=== PATIENT | female | born 1955 | race Caucasian/White ===

== ENCOUNTER 2020-02-21 07:45 | Outpatient (CLI) | payer MEDICARE, OTHER, SELFPAY ==
[2020-02-21 08:05] LABS: Hematocrit 43.4 % (37.0-47.0); Hemoglobin 14.2 g/dL (12.0-15.0); Mean Corpuscular HGB Conc 32.7 g/dl (32-36); Mean Corpuscular Hemoglobin 30.5 pg (26-34); Mean Corpuscular Volume 93.3 fl (80-100); Mean Platelet Volume 10.7 fl (7.4-10.4); Platelet Count Result 169 k/mm3 (150-375); Red Blood Count 4.65 M/mm3 (4.2-5.4); Red Cell Distribution Width 13.2 % (11.5-14.5); White Blood Count 5.4 K/mm3 (4.5-10.0)
[2020-02-21 08:29] LABS: LDL Cholesterol Direct 92 mg/dL
[2020-02-21 08:37] LABS: Alanine Aminotransferase 16 U/L (4-35); Albumin Level 4.1 g/dL (3.5-5.1); Alkaline Phosphatase 64 U/L (38-126); Anion Gap 3 mmol/L (8-16); Aspartate Amino Transferase 27 U/L (14-36); Bilirubin,Total 0.7 mg/dL (0.2-1.3); Blood Urea Nitrogen 20 mg/dL (7-17); Calcium 9.4 mg/dL (8.4-10.2); Carbon Dioxide 30 mmol/L (22-30); Chloride 106 mmol/L (98-107); Cholesterol 191 mg/dL (0-200); Estimated Glomerular Filt Rate > 60; Glucose 93 mg/dL (65-105); HDL Direct 71 mg/dL; Sodium 139 mmol/L (137-145); Triglycerides 104 mg/dL (<150)
[2020-02-21 10:01] LABS: Potassium 4.1 mmol/L (3.4-5.0)
[2020-02-26 00:06] LABS: Vitamin D 1,25 (OH)2 Total 37 pg/mL (18-72); Vitamin D2 1,25 (OH)2 26 pg/mL; Vitamin D3 1,25 (OH)2 11 pg/mL
== END 2020-02-21 07:46 | disposition home or self-care (01) ==
PROVIDERS: PCP Family Medicine; Visit Provider Family Medicine
DX: E78.5 Hyperlipidemia, unspecified (principal); Z13.220 Encounter for screening for lipoid disorders; R03.0 Elevated blood-pressure reading, without diagnosis of hypertension; E55.9 Vitamin D deficiency, unspecified
CPT/HCPCS: 36415; 80053; 80061; 82652; 85027

== ENCOUNTER 2020-05-22 08:17 | Outpatient (CLI) | payer MEDICARE, OTHER, SELFPAY ==
--- NOTE | ~2020-05-22 | MM_ITS ---
EXAMINATION: MM screening tiara BI w roberto HISTORY: Screening mammogram TECHNIQUE: Craniocaudal and mediolateral oblique 3-D tomosynthesis images were obtained and synthetic 2-D images were generated. CAD analysis was submitted and interpreted. COMPARISON: 05/09/2019, 05/04/2018, 04/23/2017 bilateral digital screening mammogram examinations BREAST PARENCHYMAL COMPOSITION: There are scattered areas of fibroglandular density. FINDINGS: There is no evidence of suspicious mass, calcification, or architectural distortion to sugg est malignancy in either breast. There has been no suspicious interval change. IMPRESSION: 1. No mammographic evidence of malignancy. 2. Recommend routine screening mammography in one year. BI-RADS Category 1: Negative Reviewed, dictated and finalized at location B. 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
== END 2020-05-22 08:18 | disposition home or self-care (01) ==
LOC: ANHIMG 08:20
PROVIDERS: PCP Family Medicine; Visit Provider Family Medicine
DX: Z12.31 Encounter for screening mammogram for malignant neoplasm of breast (principal)
CPT/HCPCS: 77063; 77067

== ENCOUNTER 2021-03-25 08:33 | Outpatient (CLI) | payer MEDICARE, OTHER, SELFPAY ==
[2021-03-25 09:11] LABS: Alanine Aminotransferase 15 U/L (4-35); Albumin Level 4.6 g/dL (3.5-5.1); Alkaline Phosphatase 78 U/L (38-126); Anion Gap 7 mmol/L (8-16); Aspartate Amino Transferase 26 U/L (14-36); Bilirubin,Total 0.8 mg/dL (0.2-1.3); Blood Urea Nitrogen 18 mg/dL (7-17); Calcium 10.1 mg/dL (8.4-10.2); Carbon Dioxide 31 mmol/L (22-30); Chloride 105 mmol/L (98-107); Cholesterol 208 mg/dL (0-200); Estimated Glomerular Filt Rate > 60; Glucose 105 mg/dL (65-110); HDL Direct 81 mg/dL; Potassium 4.3 mmol/L (3.4-5.0); Sodium 143 mmol/L (137-145); Triglycerides 139 mg/dL (<150)
[2021-03-25 09:23] LABS: LDL Cholesterol Direct 93 mg/dL
[2021-03-25 09:36] LABS: Basophils Percent Auto 0.7 % (0.2-1.2); Eosinophils Absolute Auto 0.1 K/mm3 (0-0.3); Hematocrit 46.5 % (37.0-47.0); Hemoglobin 15.1 g/dL (12.0-15.0); Immature Granulocyte Absolute 0.01 K/mm3 (0.00-0.031); Immature Granulocyte Percent A 0.2 % (0-0.5); Lymphocytes Absolute Auto 1.39 K/mm3 (0.9-3.2); Lymphocytes Percent Auto 25.3 % (18.3-44.2); Mean Corpuscular HGB Conc 32.5 g/dl (32-36); Mean Corpuscular Hemoglobin 30.1 pg (26-34); Mean Corpuscular Volume 92.8 fl (80-100); Mean Platelet Volume 11.2 fl (7.4-10.4); Monocytes Absolute Auto 0.6 K/mm3 (0.1-0.6); Monocytes Percent Auto 11.1 % (2.6-8.5); Neutrophils Absolute Auto 3.3 K/mm3 (1.3-6.7); Neutrophils Percent Auto 60.7 % (45.5-73.1); Platelet Count Result 192 k/mm3 (150-375); Red Blood Count 5.01 M/mm3 (4.2-5.4); Red Cell Distribution Width 13.4 % (11.5-14.5); White Blood Count 5.5 K/mm3 (4.5-10.0)
[2021-03-29 23:57] LABS: Vitamin D 1,25 (OH)2 Total 52 pg/mL (18-72); Vitamin D2 1,25 (OH)2 35 pg/mL; Vitamin D3 1,25 (OH)2 17 pg/mL
== END 2021-03-25 08:34 | disposition home or self-care (01) ==
LOC: ANHLAB 08:35
PROVIDERS: PCP Family Medicine; Visit Provider Family Medicine
DX: R03.0 Elevated blood-pressure reading, without diagnosis of hypertension (principal); E78.5 Hyperlipidemia, unspecified; E55.9 Vitamin D deficiency, unspecified
CPT/HCPCS: 36415; 80053; 80061; 82652; 85025

== ENCOUNTER 2021-04-11 07:32 | Outpatient (CLI) | payer MEDICARE, OTHER, SELFPAY ==
--- NOTE | ~2021-04-11 | US_ITS ---
EXAMINATION: US carotid duplex BI DATE: 04/11/2021 08:00 INDICATION: Other signs/symptoms involving the respiratory system. Bilateral carotid atherosclerosis. TECHNIQUE: Grayscale, color Doppler, and pulsed Doppler images of the cervical carotid arteries were obtained. The degree of vessel stenosis is placed in one of the following categories: normal, <50%, 5 0-69%, >=70% but less than near-occlusion, near-occlusion, or total occlusion. Note that percent sten osis relative to normal distal artery lumen diameter is indirectly measured from velocity measurement s as described by Mark, et al. Radiology 2003; 229:340-346. COMPARISON: CT dated 03/14/2017 FINDINGS: RIGHT: The right common carotid artery (CCA) peak systolic velocity (PSV) is 76 cm/s. The right internal car otid artery (ICA) PSV is 78 cm/s. The right ICA end-diastolic velocity (EDV) is 29 cm/s. The right IC A/CCA PSV ratio is 1.0. Grayscale and color Doppler images yield an estimate of <50% diameter reducti on from plaque in the ICA. The external carotid artery (ECA) PSV is 63 cm/s. There is antegrade flow in the right vertebral artery. LEFT: The left CCA PSV is 74 cm/s. The left ICA PSV is 87 cm/s. The left ICA EDV is 34 cm/s. The left ICA/C CA PSV ratio is 1.2. Grayscale and color Doppler images yield an estimate of <50% diameter reduction from plaque in the ICA. The ECA PSV is 61 cm/s. There is antegrade flow in the left vertebral artery. IMPRESSION: 1. <50% stenosis from minimal plaque in the right internal carotid artery. 2. <50% stenosis from minimal plaque in the left internal carotid artery. Reviewed, dictated and finalized at location A.
== END 2021-04-11 07:33 | disposition home or self-care (01) ==
LOC: ANHIMG 07:35
PROVIDERS: PCP Family Medicine; Visit Provider Family Medicine
DX: R09.89 Other specified symptoms and signs involving the circulatory and respiratory systems (principal); I65.23 Occlusion and stenosis of bilateral carotid arteries
CPT/HCPCS: 93880

== ENCOUNTER 2021-06-24 12:20 | Outpatient (CLI) | payer MEDICARE, OTHER, SELFPAY ==
[2021-06-24 12:51] LABS: Alanine Aminotransferase 12 U/L (4-35); Aspartate Amino Transferase 25 U/L (14-36)
== END 2021-06-24 12:21 | disposition home or self-care (01) ==
PROVIDERS: PCP Family Medicine; Visit Provider Family Medicine
DX: R79.89 Other specified abnormal findings of blood chemistry (principal); I65.21 Occlusion and stenosis of right carotid artery; E78.5 Hyperlipidemia, unspecified
CPT/HCPCS: 36415; 84450; 84460

== ENCOUNTER → 2021-07-08 14:21 | Outpatient (CLI) | payer MEDICARE, OTHER, SELFPAY ==
--- NOTE | ~2021-07-08 | DEXA_ITS ---
Bone Density Report Name: JANES RODRÍGUEZ Age: 65 Sex: Female Ethnicity: White Date of : 1955 Indication: postmenopausal; screening for osteoporosis; hysterectomy; Referring Provider: HOSSEIN KRAMER Study: Bone densitometry was performed. Exam Date: July 08, 2021 Accession number: [id number] Bone Density: Region BMD T-score Z-score Classification AP Spine (L1-L4) 0.892 -1.4 0.5 Osteopenia Femoral Neck (Left) 0.633 -2.0 -0.4 Osteopenia Total Hip (Left) 0.817 -1.0 0.3 Normal Femoral Neck (Right) 0.587 -2.4 -0.8 Osteopenia Total Hip (Right) 0.766 -1.4 -0.1 Osteopenia Total Hip Mean 0.792 -1.2 0.1 Osteopenia World Health Organization criteria for BMD impression classify patients as: Normal (T-score at or above -1.0), Osteopenia (T-score between -1.0 and -2.5), or Osteoporosis (T-score at or below -2.5). 10-year Fracture Risk: FRAX not reported because: Treated for osteoporosis Clinical Information Provided by Patient: Is being treated for osteoporosis Has used the following medications: Actonel (i.e. risedronate), Vitamin D, Calcium Has the following medical conditions: Hysterectomy Patient maximum height was 61.5 Menopause Age: 49 No regular weight bearing exercise Does not regularly consume dairy products Drinks caffeinated beverages Onset of menses at age 8 Number of children 4 Impression: The patient has low bone mass, based on the Right Femoral Neck T-score. Discussion: It is important to ask patients whether they are taking their medications and to encourage continued and appropriate compliance with their osteoporosis therapies to reduce fracture risk. It is also important to review their risk factors and encourage appropriate calcium and vitamin D intakes, exercise, fall prevention and other lifestyle measures. Follow-Up: Consider a repeat BMD and Vertebral Fracture Assessment (VFA) exam in 2 years or sooner if medically necessary, to reassess this patient's status. Reported by: FATEMEH on 07/08/2021 2:47:00 PM. Reviewed, dictated and finalized at location AАнна SZYMANSKI
--- NOTE | ~2021-07-08 | MM_ITS ---
EXAMINATION: MM screening tiara BI w roberto HISTORY: Screening TECHNIQUE: Craniocaudal and mediolateral oblique 3-D tomosynthesis images were obtained and synthetic 2-D images were generated. CAD analysis was submitted and interpreted. COMPARISON: Comparison to multiple prior studies sequentially, with oldest reviewed study dated 02/2015. BREAST PARENCHYMAL COMPOSITION: There are scattered areas of fibroglandular density. FINDINGS: There is no evidence of suspicious mass, calcification, or architectural distortion to sugg est malignancy in either breast. There has been no suspicious interval change. IMPRESSION: 1. No mammographic evidence of malignancy. 2. Recommend routine screening mammography in one year. BI-RADS Category 1: Negative Reviewed, dictated and finalized at location A. 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
== END ==
PROVIDERS: PCP Family Medicine; Visit Provider Nurse Practitioner Gerontology
DX: Z12.31 Encounter for screening mammogram for malignant neoplasm of breast (principal); Z78.0 Asymptomatic menopausal state; M85.89 Other specified disorders of bone density and structure, multiple sites
CPT/HCPCS: 77063; 77067; 77080

== ENCOUNTER 2022-02-07 11:23 | Outpatient (CLI) | payer MEDICARE, OTHER, SELFPAY ==
[2022-02-07 12:03] LABS: Basophils Percent Auto 0.4 % (0.2-1.2); Eosinophils Absolute Auto 0.1 K/mm3 (0-0.3); Hematocrit 45.2 % (37.0-47.0); Hemoglobin 14.4 g/dL (12.0-15.0); Immature Granulocyte Absolute 0.02 K/mm3 (0.00-0.031); Immature Granulocyte Percent A 0.3 % (0-0.5); Lymphocytes Absolute Auto 1.73 K/mm3 (0.9-3.2); Lymphocytes Percent Auto 25.8 % (18.3-44.2); Mean Corpuscular HGB Conc 31.9 g/dl (32-36); Mean Corpuscular Hemoglobin 29.8 pg (26-34); Mean Corpuscular Volume 93.6 fl (80-100); Mean Platelet Volume 11.3 fl (7.4-10.4); Monocytes Absolute Auto 0.8 K/mm3 (0.1-0.6); Monocytes Percent Auto 11.5 % (2.6-8.5); Neutrophils Absolute Auto 4.1 K/mm3 (1.3-6.7); Platelet Count Result 180 k/mm3 (150-375); Red Blood Count 4.83 M/mm3 (4.2-5.4); Red Cell Distribution Width 13.5 % (11.5-14.5); White Blood Count 6.7 K/mm3 (4.5-10.0)
[2022-02-07 12:14] LABS: Alanine Aminotransferase 14 U/L (6-35); Albumin Level 4.5 g/dL (3.5-5.1); Alkaline Phosphatase 61 U/L (38-126); Anion Gap 10 mmol/L (8-16); Aspartate Amino Transferase 25 U/L (14-36); Bilirubin,Total 0.7 mg/dL (0.2-1.3); Blood Urea Nitrogen 19 mg/dL (7-17); Calcium 9.8 mg/dL (8.4-10.2); Carbon Dioxide 30 mmol/L (22-30); Chloride 103 mmol/L (98-107); Cholesterol 174 mg/dL (0-200); Estimated Glomerular Filt Rate > 60; Glucose 93 mg/dL (65-110); HDL Direct 74 mg/dL; Potassium 4.4 mmol/L (3.4-5.0); Sodium 143 mmol/L (137-145); Triglycerides 140 mg/dL (<150)
[2022-02-07 12:25] LABS: LDL Cholesterol Direct 62 mg/dL
== END 2022-02-07 11:24 | disposition home or self-care (01) ==
PROVIDERS: PCP Family Medicine; Visit Provider Physician Assistant
DX: Z78.0 Asymptomatic menopausal state (principal); E78.01 Familial hypercholesterolemia; M85.80 Other specified disorders of bone density and structure, unspecified site
CPT/HCPCS: 36415; 80053; 80061; 85025

== ENCOUNTER 2022-02-24 11:26 | Outpatient (CLI) | payer MEDICARE, OTHER, SELFPAY ==
--- NOTE | ~2022-02-24 | CT_ITS ---
EXAMINATION: CT brain wo con DATE: 02/24/2022 11:46 INDICATION: Headache. TECHNIQUE: Computed tomography (CT) of the head was performed without intravenous contrast. The mA wa s adjusted according to patient size. Iterative reconstruction technique was employed. The dose-lengt h product was 605.33 mGy-cm. COMPARISON: None FINDINGS: There is no intracranial hemorrhage, acute infarction, or abnormal intracranial mass lesion . The ventricles are normal in size. The orbits are normal. The paranasal sinuses are clear. The mast oid air cells are normal. IMPRESSION: 1. Normal brain. Reviewed, dictated and finalized at location A. IMPRESSION: 1. Normal brain.
== END 2022-02-24 11:27 | disposition home or self-care (01) ==
PROVIDERS: PCP Family Medicine; Visit Provider Nurse Practitioner Gerontology
DX: R51.9 Headache, unspecified (principal)
CPT/HCPCS: 70450

== ENCOUNTER 2022-08-04 14:21 | Outpatient (CLI) | payer MEDICARE, OTHER, SELFPAY ==
--- NOTE | ~2022-08-04 | MM_ITS ---
EXAMINATION: MM screening tiara BI w roberto HISTORY: Screening mammogram TECHNIQUE: Craniocaudal and mediolateral oblique 3-D tomosynthesis images were obtained and synthetic 2-D images were generated. CAD analysis was submitted and interpreted. COMPARISON: July 08, 2021, May 22, 2020, May 09, 2019 bilateral screening mammogram exami nations BREAST PARENCHYMAL COMPOSITION: There are scattered areas of fibroglandular density. FINDINGS: There is no evidence of suspicious mass, calcification, or architectural distortion to sugg est malignancy in either breast. There has been no suspicious interval change. IMPRESSION: 1. No mammographic evidence of malignancy. 2. Recommend routine screening mammography in one year. BI-RADS Category 1: Negative Reviewed, dictated and finalized at location A. NG STUDIES DIRECTOR
== END 2022-08-04 14:22 | disposition home or self-care (01) ==
PROVIDERS: PCP Family Medicine; Visit Provider Physician Assistant
DX: Z12.31 Encounter for screening mammogram for malignant neoplasm of breast (principal)
CPT/HCPCS: 77063; 77067

== ENCOUNTER 2022-10-01 07:42 | Outpatient (CLI) | payer MEDICARE, OTHER, SELFPAY ==
[2022-10-01 08:09] LABS: Basophils Percent Auto 0.7 % (0.2-1.2); Eosinophils Absolute Auto 0.1 K/mm3 (0-0.3); Eosinophils Percent Auto 1.1 % (0-4.4); Hematocrit 47.6 % (37.0-47.0); Hemoglobin 15.3 g/dL (12.0-15.0); Immature Granulocyte Absolute 0.02 K/mm3 (0.00-0.031); Immature Granulocyte Percent A 0.3 % (0-0.5); Lymphocytes Absolute Auto 1.17 K/mm3 (0.9-3.2); Lymphocytes Percent Auto 19.1 % (18.3-44.2); Mean Corpuscular HGB Conc 32.1 g/dl (32-36); Mean Corpuscular Hemoglobin 30.2 pg (26-34); Mean Corpuscular Volume 94.1 fl (80-100); Mean Platelet Volume 10.8 fl (7.4-10.4); Monocytes Absolute Auto 0.6 K/mm3 (0.1-0.6); Monocytes Percent Auto 10.1 % (2.6-8.5); Neutrophils Absolute Auto 4.2 K/mm3 (1.3-6.7); Neutrophils Percent Auto 68.7 % (45.5-73.1); Platelet Count Result 192 k/mm3 (150-375); Red Blood Count 5.06 M/mm3 (4.2-5.4); Red Cell Distribution Width 13.5 % (11.5-14.5); White Blood Count 6.1 K/mm3 (4.5-10.0)
[2022-10-01 08:15] LABS: Alanine Aminotransferase 19 U/L (6-35); Albumin Level 4.6 g/dL (3.5-5.1); Alkaline Phosphatase 69 U/L (38-126); Anion Gap 2 mmol/L (8-16); Aspartate Amino Transferase 26 U/L (14-36); Bilirubin,Total 0.9 mg/dL (0.2-1.3); Blood Urea Nitrogen 18 mg/dL (7-17); Calcium 9.7 mg/dL (8.4-10.2); Carbon Dioxide 33 mmol/L (22-30); Chloride 104 mmol/L (98-107); Cholesterol 182 mg/dL (0-200); Estimated Glomerular Filt Rate > 60; Glucose 94 mg/dL (65-110); HDL Direct 77 mg/dL; Potassium 4.7 mmol/L (3.4-5.0); Sodium 139 mmol/L (137-145); Triglycerides 136 mg/dL (<150)
[2022-10-01 08:26] LABS: LDL Cholesterol Direct 73 mg/dL
== END 2022-10-01 07:43 | disposition home or self-care (01) ==
LOC: ANHLAB 07:47
PROVIDERS: PCP Family Medicine; Visit Provider Physician Assistant
DX: N39.0 Urinary tract infection, site not specified (principal); Z78.0 Asymptomatic menopausal state; E78.5 Hyperlipidemia, unspecified; E78.01 Familial hypercholesterolemia
CPT/HCPCS: 36415; 80053; 80061; 85025

== ENCOUNTER 2022-12-02 08:05 | Outpatient (CLI) | payer MEDICARE, OTHER, SELFPAY ==
[2022-12-02 08:21] LABS: Basophils Percent Auto 0.6 % (0.2-1.2); Eosinophils Absolute Auto 0.1 K/mm3 (0-0.3); Eosinophils Percent Auto 1.7 % (0-4.4); Hematocrit 45.8 % (37.0-47.0); Hemoglobin 14.6 g/dL (12.0-15.0); Immature Granulocyte Absolute 0.02 K/mm3 (0.00-0.031); Immature Granulocyte Percent A 0.3 % (0-0.5); Lymphocytes Absolute Auto 1.48 K/mm3 (0.9-3.2); Lymphocytes Percent Auto 22.9 % (18.3-44.2); Mean Corpuscular HGB Conc 31.9 g/dl (32-36); Mean Corpuscular Hemoglobin 30.2 pg (26-34); Mean Corpuscular Volume 94.8 fl (80-100); Mean Platelet Volume 10.3 fl (7.4-10.4); Monocytes Absolute Auto 0.8 K/mm3 (0.1-0.6); Monocytes Percent Auto 12.7 % (2.6-8.5); Neutrophils Percent Auto 61.8 % (45.5-73.1); Platelet Count Result 205 k/mm3 (150-375); Red Blood Count 4.83 M/mm3 (4.2-5.4); Red Cell Distribution Width 13.2 % (11.5-14.5); White Blood Count 6.5 K/mm3 (4.5-10.0)
== END 2022-12-02 08:06 | disposition home or self-care (01) ==
LOC: ANHLAB 08:08
PROVIDERS: PCP Family Medicine; Visit Provider Physician Assistant
DX: D58.2 Other hemoglobinopathies (principal)
CPT/HCPCS: 36415; 85025

== ENCOUNTER 2023-01-15 10:40 | Outpatient (CLI) | payer MEDICARE, OTHER, SELFPAY ==
--- NOTE | ~2023-01-15 | US_ITS ---
EXAMINATION: US carotid duplex BI DATE: 01/15/2023 11:08 INDICATION: Right carotid bruit TECHNIQUE: Grayscale, color Doppler, and pulsed Doppler images of the cervical carotid arteries were obtained. The degree of vessel stenosis is placed in one of the following categories: normal, <50%, 5 0-69%, >=70% but less than near-occlusion, near-occlusion, or total occlusion. Note that percent sten osis relative to normal distal artery lumen diameter is indirectly measured from velocity measurement s as described by Mark, et al. Radiology 2003; 229:340-346. COMPARISON: None. FINDINGS: RIGHT: The right common carotid artery (CCA) peak systolic velocity (PSV) is 72 cm/s. The right internal car otid artery (ICA) PSV is 88 cm/s. The right ICA end-diastolic velocity (EDV) is 27 cm/s. The right IC A/CCA PSV ratio is 1.2. Grayscale and color Doppler images yield an estimate of <50% diameter reducti on from plaque in the ICA. The external carotid artery (ECA) PSV is 47 cm/s. There is antegrade flow in the right vertebral artery. LEFT: The left CCA PSV is 76 cm/s. The left ICA PSV is 95 cm/s. The left ICA EDV is 31 cm/s. The left ICA/C CA PSV ratio is 1.3. Grayscale and color Doppler images yield an estimate of <50% diameter reduction from plaque in the ICA. The ECA PSV is 49 cm/s. There is antegrade flow in the left vertebral artery. IMPRESSION: 1. <50% stenosis from minimal plaque in the right internal carotid artery. 2. <50% stenosis from minimal plaque in the left internal carotid artery. Reviewed, dictated and finalized at location B.
== END 2023-01-15 10:41 | disposition home or self-care (01) ==
PROVIDERS: PCP Family Medicine; Visit Provider Family Medicine
DX: R09.89 Other specified symptoms and signs involving the circulatory and respiratory systems (principal); I65.23 Occlusion and stenosis of bilateral carotid arteries
CPT/HCPCS: 93880

== ENCOUNTER 2023-07-30 09:34 | Outpatient (CLI) | payer MEDICARE, OTHER, SELFPAY ==
--- NOTE | ~2023-07-30 | DEXA_ITS ---
Bone Density Report Name: JANES RODRÍGUEZ Age: 67 Sex: Female Ethnicity: White Date of : 1955 Indication: osteopenia; monitoring treatment; hysterectomy; Referring Provider: CANDI JEAN-BAPTISTE Study: Bone densitometry was performed. Exam Date: July 30, 2023 Accession number: [id number] Bone Density: Region BMD T-score Z-score Classification AP Spine (L1-L4) 0.910 -1.2 0.8 Osteopenia Femoral Neck (Left) 0.655 -1.8 0.0 Osteopenia Total Hip (Left) 0.849 -0.8 0.7 Normal Femoral Neck (Right) 0.582 -2.4 -0.7 Osteopenia Total Hip (Right) 0.765 -1.5 0.0 Osteopenia Total Hip Mean 0.807 -1.2 0.4 Osteopenia World Health Organization criteria for BMD impression classify patients as: Normal (T-score at or above -1.0), Osteopenia (T-score between -1.0 and -2.5), or Osteoporosis (T-score at or below -2.5). 10-year Fracture Risk: FRAX not reported because: Treated for osteoporosis Previous Exams: Region Exam Age BMD T-score BMD Change BMD Change Date g/cm2 vs Baseline vs Previous AP Spine(L1-L4) 07/30/2023 67 0.910 -1.2 0.018 0.018 07/08/2021 65 0.892 -1.4 Total Hip(Left) 07/30/2023 67 0.849 -0.8 0.032* 0.032* 07/08/2021 65 0.817 -1.0 Total Hip(Right) 07/30/2023 67 0.765 -1.5 -0.001 -0.001 07/08/2021 65 0.766 -1.4 *Denotes significance at 95% confidence level, LSC for AP Spine = 0.022 g/cm2, LSC for Total Hip = 0.027 g/cm2 Clinical Information Provided by Patient: Is being treated for osteoporosis Has used the following medications: Fosamax (i.e. alendronate), Vitamin D, Calcium Has the following medical conditions: Hysterectomy Patient maximum height was 61.5 Menopause Age: 49 No regular weight bearing exercise Does not regularly consume dairy products Drinks caffeinated beverages Onset of menses at age 8 Number of children 4 Impression: The patient has low bone mass, based on the Right Femoral Neck T-score. No significant bone loss was observed. Discussion: PATIENT UNDER TREATMENT WITH NO SIGNIFICANT BMD LOSS SINCE LAST EXAM. In an untreated patient, BMD typically declines with age. A lack of decline or gain is usually a sign that treatment is efficacious and fracture risk is reduced. It is important to ask patients whether they are taking their medications and to encourage continued and appropriate compliance with their osteoporosis therapies to reduce fracture risk. It is a
== END 2023-07-30 09:35 ==
LOC: MICIMG 09:35
PROVIDERS: PCP Family Medicine; Visit Provider Physician Assistant
DX: Z78.0 Asymptomatic menopausal state (principal); M85.88 Other specified disorders of bone density and structure, other site; M85.852 Other specified disorders of bone density and structure, left thigh; M85.851 Other specified disorders of bone density and structure, right thigh
CPT/HCPCS: 77080

== ENCOUNTER 2024-01-26 14:48 | Outpatient (CLI) | payer MEDICARE, OTHER, SELFPAY ==
--- NOTE | ~2024-01-26 | MM_ITS ---
EXAMINATION: MM screening tiara BI w roberto HISTORY: Screening TECHNIQUE: Craniocaudal and mediolateral oblique 3-D tomosynthesis images were obtained and synthetic 2-D images were generated. CAD analysis was submitted and interpreted. COMPARISON: Comparison to multiple prior studies sequentially, with oldest reviewed study dated 04/07. BREAST PARENCHYMAL COMPOSITION: Not dense: There are scattered areas of fibroglandular density. FINDINGS: There is no evidence of suspicious mass, calcification, or architectural distortion to sugg est malignancy in either breast. There has been no suspicious interval change. IMPRESSION: 1. No mammographic evidence of malignancy. 2. Recommend routine screening mammography in one year. BI-RADS Category 1: Negative Reviewed, dictated and finalized at location B.
== END 2024-01-26 14:49 ==
LOC: MICIMG 14:49
PROVIDERS: PCP Family Medicine; Visit Provider Family Medicine
DX: Z12.31 Encounter for screening mammogram for malignant neoplasm of breast (principal)
CPT/HCPCS: 77063; 77067

== ENCOUNTER 2024-01-27 07:02 | Outpatient (CLI) | payer MEDICARE, OTHER, SELFPAY ==
[2024-01-27 07:41] LABS: Basophils Percent Auto 0.6 % (0.2-1.2); Eosinophils Absolute Auto 0.2 K/mm3 (0-0.3); Eosinophils Percent Auto 3.4 % (0-4.4); Hematocrit 47.1 % (37.0-47.0); Hemoglobin 14.9 g/dL (12.0-15.0); Immature Granulocyte Absolute 0.03 K/mm3 (0.00-0.031); Immature Granulocyte Percent A 0.6 % (0-0.5); Lymphocytes Absolute Auto 1.22 K/mm3 (0.9-3.2); Mean Corpuscular HGB Conc 31.6 g/dl (32-36); Mean Corpuscular Hemoglobin 29.6 pg (26-34); Mean Corpuscular Volume 93.6 fl (80-100); Mean Platelet Volume 10.9 fl (7.4-10.4); Monocytes Absolute Auto 0.7 K/mm3 (0.1-0.6); Monocytes Percent Auto 15.1 % (2.6-8.5); Neutrophils Absolute Auto 2.6 K/mm3 (1.3-6.7); Neutrophils Percent Auto 54.3 % (45.5-73.1); Platelet Count Result 178 k/mm3 (150-375); Red Blood Count 5.03 M/mm3 (4.2-5.4); Red Cell Distribution Width 13.6 % (11.5-14.5); White Blood Count 4.7 K/mm3 (4.5-10.0)
[2024-01-27 07:59] LABS: Alanine Aminotransferase 17 U/L (6-35); Albumin Level 4.1 g/dL (3.5-5.1); Alkaline Phosphatase 71 U/L (38-126); Anion Gap 6 mmol/L (4-12); Aspartate Amino Transferase 28 U/L (14-36); Bilirubin,Total 0.6 mg/dL (0.2-1.3); Blood Urea Nitrogen 15 mg/dL (7-17); Calcium 9.3 mg/dL (8.4-10.2); Carbon Dioxide 30 mmol/L (22-30); Chloride 104 mmol/L (98-107); Cholesterol 169 mg/dL (0-200); Estimated Glomerular Filt Rate > 60; Glucose 91 mg/dL (65-110); HDL Direct 73 mg/dL; Sodium 140 mmol/L (137-145); Triglycerides 177 mg/dL (<150)
[2024-01-27 08:09] LABS: LDL Cholesterol Direct 62 mg/dL
== END 2024-01-27 07:03 | disposition home or self-care (01) ==
LOC: ANHLAB 07:08
PROVIDERS: Student in an Organized Health Care Education/Training Program; PCP Family Medicine; Visit Provider Family Medicine
DX: E78.01 Familial hypercholesterolemia (principal); E78.5 Hyperlipidemia, unspecified
CPT/HCPCS: 36415; 80053; 80061; 85025

== ENCOUNTER 2024-02-24 12:46 | Outpatient (RCR) | payer MEDICARE, OTHER, SELFPAY ==
[2024-02-24 13:04] VITALS: BMI 57.3
[2024-02-24 13:33] VITALS: BMI 57.3
== END 2024-05-22 09:26 | disposition home or self-care (01) ==
LOC: ANHDMC 12:46
PROVIDERS: PCP Family Medicine; Visit Provider Family Medicine
DX: R63.5 Abnormal weight gain (principal); Z71.3 Dietary counseling and surveillance
CPT/HCPCS: 97802

== ENCOUNTER 2024-03-07 08:43 | Outpatient (CLI) | payer MEDICARE, OTHER, SELFPAY ==
[2024-03-07 10:37] LABS: Free T4 Free Thyroxine 1.11 ng/mL (0.78-2.19)
[2024-03-07 12:03] LABS: Hemoglobin A1C 5.4 % (<5.7)
== END 2024-03-07 08:44 | disposition home or self-care (01) ==
PROVIDERS: PCP Family Medicine
DX: R53.83 Other fatigue (principal); R63.5 Abnormal weight gain; Z13.1 Encounter for screening for diabetes mellitus; Z13.29 Encounter for screening for other suspected endocrine disorder; Z68.27 Body mass index [BMI] 27.0-27.9, adult
CPT/HCPCS: 36415; 83036; 84439; 84443

== ENCOUNTER 2025-02-08 06:56 | Outpatient (CLI) | payer MEDICARE, OTHER, SELFPAY ==
--- OUTSIDE RECORDS SUMMARY | 2014-03-02 02:45 | XMS_ITS | Continuity of Care Document ---
Author Organization [facility] Address [address] [place] [address] Phone Care Team Providers Care Foreign Languages Department Chair Name Role Phone Diana OD OD, Jay [...] Visit Post-op Follow-up Visit Comanaged Refractive Fee ([facility]) 14 Comanaged Refractive Fee ([facility]) 14 Refractive Evaluation Advance Directives Directive Yes / No Effective Date File Name No Information Encounters Encounter Description Practice Location Reason(s) For Visit Diagnoses Date Provider Providers Copied on Encounter [facility], [address] [place] [address] [address], [place], [place], [address], [place] tel:[phone] SEC [facility] Ball No Information Alexeny OD Jay. [address] [facility], [place], [place], [address], [place]. tel:[phone] [facility], [address], [place], [place], [address], [place] tel:[phone] SEC [facility] No Information Alexeny OD Jay. [address] [facility], [place], [place], [address], [place]. tel:[phone] Referring Provider: Jay Ortiz OD P, [address] [facility], [place], [address] . tel:[phone] [facility], [address], [place], [place], [address], [place] tel:[phone] SEC [facility] No Information Arianay OD Jay. [address] [place], [place], [address], [place]. tel:[phone] Referring Provider: Jay Ortiz OD P, [address] [facility], [place], [address] . tel:[phone] [facility], [address], [place], [place], [address], [place] tel:[phone] SEC [facility] No Information Arianakirilleny OD Jay. [address] [place], [place], [address], [place]. tel:[phone] Referring Provider: Jay Ortiz OD P, [address] [place], [address] . tel:[phone] [facility], [address], [place], [place], [address], [place] tel:[phone] SEC [facility] Follow Up of 1 DAY PO PRK OU (chief complaint) Post-op follow up Diana Thompson. [address] [place], [place], [address], . tel:[phone] Referring Provider: Jay Ortiz OD P, [address] [place], [address] . tel:[phone] [facility], [address] [place] [address] [address], [place], [address], tel:[phone] SEC [facility] No Information Diana Thompson. [address] [place], [place], [address], . tel:[phone] [facility], [address] [place] [address] [address], [place], [place], [address], tel:[phone] SEC [facility] EYE & VISION EXAMINATION Diana Thompson. [address] [place], [place], [address], . tel:[phone] Referring Provider: Jay Ortiz OD P, [address] [place], [address] . tel:[phone] Family History Family Member Type Diagnosis Age At Onset No Information Payers Payer name Insurance type Covered republican ID Authoriza tion(s) No Information Social History [...] Wyatt during surgery, monitor for progression, consider [id number] to call if symptoms worsen or do [...]
--- OUTSIDE RECORDS SUMMARY | 2025-02-08 07:03 | XMS_ITS | Patient Health Record ---
Author Organization [facility] Address [address] [place], [place] [id number] Support Name Relationship Address Phone JANES RODRÍGUEZ Guarantor Unknown Reason For Referral No Information Medications Medication SIG (Take, Route, Frequency, Duration) Notes Start Date End Date Status tramadol hydrochloride 50 MG Oral Tablet ORAL tramadol hydrochloride 50 MG Oral TabletOriginal Medicationtramadol hydrochloride 50 MG Oral Tablet *Reorder from [employer] for eRx and Interaction Alerts* 3 Active diclofenac sodium 25 MG Delayed Release Oral Tablet ORAL diclofenac sodium 25 MG Delayed Release Oral TabletOriginal Medicationdiclofenac sodium 25 MG Delayed Release Oral Tablet *Reorder from [employer] for eRx and Interaction Alerts* 2 Active ciclopirox 80 MG/ML Topical Solution [[place] [employer]] ciclopirox 80 MG/ML Topical Solution [[place] Nail Lacquer]Original Medicationciclopirox 80 MG/ML Topical Solution [[place] [employer]ail Lacquer] *Reorder from [employer] for eRx and Interaction Alerts* 3 Active acetaminophen 300 MG / hydrocodone bitartrate 5 MG Oral Tablet ORAL acetaminophen 300 MG / hydrocodone bitartrate 5 MG Oral TabletOriginal Medicationacetaminophen 300 MG / hydrocodone bitartrate 5 MG Oral Tablet *Reorder from [employer] for eRx and Interaction Alerts* 3 Active Plan Of Treatment No Information Insurance Providers Payer Name Payer Address Payer Phone Subscriber Number Group Number Insured Name Patient Relationship to Insured Coverage Start Date Coverage End Date [facility] ATTN CLAIMS [address] [place] [address] [id number] JANES YANG Self - patient is the insured [facility] ATTN CLAIMS [address] [place] [address] [id number] JANES YANG Self - patient is the insured
--- OUTSIDE RECORDS SUMMARY | 2025-02-08 07:03 | XMS_ITS | Encounter Summary ---
Author Organization [facility] Address [address] [place] [address] Care Team Providers Care Medical Practice Assistant Name Role Phone Neida Espinosa MD Primary Care Provider Encounter Details Date Type Department Care Team (Late st Contact Info) Description 01/30/2025 Results Follow-Up Cardiology Mario Olivo MD [address] [id number] [address] abdomen with contrast Social History Tobacco Use Types Packs/Day Years Used Date Smoking Tobacco: Never Smokeless Tobacco: Never Alcohol Use Standard Drinks/Week Comments No 0 (1 standard drink = 0.6 oz pur e alcohol) Comments Unknown Sex and Gender Information Value Date Recorded Sex Assigned at Not on file 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 These are typically watched with serial imaging, with repair if the size is >3 cm. Would obtain an abdominal CTA in 1 year. Please send a copy to her PCP, ty. documented in this encounter Plan of Treatment Not on file documented as of this encounter Visit Diagnoses Not on filedocumented in this encounter Care Teams Medical Practice Assistant Relationship Specialty Start Date End Date Neida Espinosa MD [address] [facility] [address] [place] [address] PCP - General 11/14/15 documented as of this encounter
--- OUTSIDE RECORDS SUMMARY | 2025-02-08 07:03 | XMS_ITS | Clinical Summary ---
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 Name Role Phone Neida Espinosa MD Primary Care Provider Allergies Active Allergy Reactions Criticality Noted Date Comments Cephalexin Vomiting Low 07/10/2019 Penicillins Other (See comments) Low Yeast infection Medications psyllium (FIBER-CAPS, PSYLLIUM HUSK,) 0.52 gram capsule take 2 by oral route 2 times every day 0 0 11/13/2015 Active magnesium oxide 500 mg capsule take 1 capsule by oral route every day with food 0 0 11/13/2015 Active black cohosh 40 mg tablet 1 tablet daily 0 0 11/13/2015 Active calcium carbonate-vitam in D3 (CALCIUM 500 + D) 1,250mg (500mg elemental) - 200 units per tablet daily. Active ergocalciferol (VITAMIN D) 50,000 unit capsule Take 50,000 Units by mouth once a week. 02/08/2018 Active valACYclovir (VALTREX) 1 gram tablet as needed. 02/14/2018 Active aspirin 81 mg tablet Take 81 mg by mouth daily. 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 Preoperative state 11/13/2015 Overview (09/11/2016): Pre-operative cardiovascular examination Ventricular bigeminy 01/19/2013 Abnormal electrocardiography 06/20/2012 Heart murmur 06/20/2012 Encounters Date Type Department Care Team Description 01/31/2025 Orders Only [facility] [address] [facility] [address]th [place] [address] [place] [address] Mario Olivo MD Splenic artery aneurysm (Primary Dx) 01/30/2025 1:53 PM CDT - 01/30/2025 11:59 PM CDT Hospital Encounter [facility] [address] [place] [address] Mario Olivo MD Splenic artery aneurysm Discharge Disposition: Discharge to home or self care 01/30/2025 Results Follow-Up Cardiology Mario Olivo MD CT abdomen with contrast 01/16/2025 [facility] [address] [facility] 8th [place] [address] [place] [address] Mario Olivo MD 01/12/2025 [facility]phone [facility] 8th [place] [address] [place] [address] Mario Olivo MD 01/10/2025 2:01 PM CDT - 01/10/2025 11:59 PM CDT Hospital Encounter [facility] [id number] [place] [address] Mario Olivo MD Carotid artery disorder; PVC's (premature ventricular contractions); Dyslipidemia Discharge Disposition: Discharge to home or self care 01/10/2025 2:01 PM CDT - 01/10/2025 11:59 PM CDT Hospital Encounter [facility] [address] [place] [address] Mario Olivo MD Carotid artery disorder; PVC's (premature ventricular contractions); Dyslipidemia Discharge Disposition: Discharge to home or self care 01/02/2025 [facility] [address] [place] [address] Jenaro Adams MD 12/27/2024 10:00 AM CDT [facility] [address] [place] [phone] Mario Olivo MD Carotid artery disorder (Primary Dx); PVC's (premature ventricular contractions); Dyslipidemia; Family history of premature CAD 12/27/2024 [facility] [address] [place] [phone] Mario Olivo MD Scheduling Testing/Treatment 12/27/2024 Results [facility] [address] [place] [phone] Mario Olivo MD ECG 12 lead, CTA Head Neck W WO Contrast, CT Coronary Calcium Scoring 11/16/2024 8:48 AM CDT - 11/16/2024 11:59 PM CDT Hospital Encounter [facility] [address] [place] [phone] PVC (premature ventricular contraction) Discharge Disposition: Discharge to home or self care from Last 3 Months Medical History Medical History Date Comments Hx Other Medical chronic right f oot pain, functional diarrhea; Comments: MAF 11/13/2015 - Family History Medical History Relation Name Comments Diabetes Father Family history of diabetes mellitus (DM) - (Added by Conv) Other Father Pics Diease; Ca use of : Pics Diease Arrhythmia Mother Family history of pacemaker - (Added by Conv) Heart attack Mother Myocardial infa rction; /Family history of heart attack - (Added by Conv) Relation Name Status Comments Father Mother Social History Tobacco Use Types Packs/Day Years Used Date Smoking Tobacco: Never Smokeless Tobacco: Never Alcohol Use Standard Drinks/Week Comments No 0 (1 standard drink = 0.6 oz pur e alcohol) Comments Unknown Sex and Gender Information Value Date Recorded Sex Assigned at Not on file Legal Sex Female 2:44 AM 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 CUTTER Gender Identity Female 05/16/2020 7:34 AM HOOP CUTTER Sexual Orientation Not on file Obstetrics History Last Filed Vital Signs Vital Sign Reading Time Taken Comments Blood Pressure 121/79 12/27/2024 10:14 AM CDT Pulse 60 12/27/2024 10:14 AM CDT Temperature 22.8 C (73 F) 10/27/2024 9:06 AM CDT Respiratory Rate - - Oxygen Saturation 96% 12/27/2024 10:14 AM CDT Inhaled Oxygen Concentration - - Weight 57.7 kg (127 lb 3.2 oz) 12/27/2024 10:14 AM CDT Height 154.9 cm (5' 1) 12/27/2024 10:14 AM CDT Body Mass Index 24.03 12/27/2024 10:14 AM CDT Plan of Treatment Health Maintenance Due Date Last Done Comments Breast Cancer Screening-Mammogram 1955 Colon Cancer Screening-Colonoscopy 1955 Depression Screening 1955 Fall Risk Assessment 1955 Hepatitis C Screening 1955 Osteoporosis Screening-Bone Density Scan 1955 DTaP/Tdap/Td Vaccine (1 - Tdap) 1965 Hepatitis B Screening 1972 Pneumococcal vaccine 65+ (1 of 1 - PCV) 2004 Zoster Vaccine (2 of 3) 06/01/2015 04/06/2015 Well Visit 65+ 12/11/2019 Influenza Vaccine (#1) 2025 8, 04/05/2018, 02/22/2016, Additional history exists Procedures Procedure Name Priority Date/Time Associated Diagnosis Comments CT ABDOMEN W CONTRAST Schedule Routine, Read Routine (OP Routine) 01/30/2025 2:45 PM CDT Splenic artery aneurysm CTA HEAD NECK W WO CONTRAST Schedule Routine, Read Routine (OP Routine) 01/10/2025 2:20 PM CDT Carotid artery disorder PVC's (premature ventricular contractions) Dyslipidemia CT HEART CALCIUM Schedule Routine, Read Routine (OP Routine) 01/10/2025 2:19 PM CDT Carotid artery disorder PVC's (premature ventricular contractions) Dyslipidemia POC ISTAT Routine 01/10/2025 2:12 PM CDT ECG 12-LEAD Routine 12/27/2024 10:18 AM CDT PVC's (premature ventricular contractions) TRANSTHORACIC ECHO (TTE) COMPLETE W DOPPLER/CF WO CONTRAST Routine 11/16/2024 10:51 AM CDT PVC (premature ventricular contraction) from Last 3 Months Results * CT abdomen with contrast (01/30/2025 2:45 PM CDT) Anatomical Region Laterality Modality Body N/A Computed Tomogra phy 01/30/2025 2:56 PM CDT Impressions 01/30/2025 2:56 PM CDT 1. No acute finding in the abdomen. 2. Stable 1.5 x 1.1 cm peripherally calcified splenic artery aneurysm. Electronically signed by: Naeem Sharif M.D. Narrative 01/30/2025 2:56 PM CDT EXAMINATION: CT ABDOMEN W CONTRAST HISTORY: Splenic artery aneurysm noted on recent coronary calcium CT. TECHNIQUE: Transaxial computed tomographic images of the abdomen were obtained with intravenous contrast according to the standard protocol after the uneventful administration of 68 mL Opti-Ray 350 intravenous contrast. COMPARISON: Coronary calcium CT dated 01/10/2025 FINDINGS: Within the lower chest, there is minimal atelectasis but no consolidation, pleural effusion, or pneumothorax within the ixstt-wt-drsn. The imaged heart is normal in size without pericardial effusion within the vcfhm-yt-xbka. There is a small hepatic cyst in segment 4b. There is mild biliary duct dilation which may represent reservoir effect in the setting of cholecystectomy. The gallbladder is surgically absent. The spleen, pancreas, and adrenal glands are normal. There are bilateral parapelvic renal cysts. There is no hydronephrosis. The imaged large and small bowel are normal in caliber without obstruction. There is no ascites or pneumoperitoneum within the fuiil-ie-ohgn. The abdominal aorta is normal in caliber. There is a peripherally calcified splenic artery aneurysm measuring 1.5 x 1.1 cm in diameter, unchanged from the recent core a CT dated 11/24/2024. No aggressive osseous lesion is identified. Procedure Note Naeem Sharif MD PhD - 01/30/2025 EXAMINATION: CT ABDOMEN W CONTRAST HISTORY: Splenic artery aneurysm noted on recent coronary calcium CT. TECHNIQUE: Transaxial computed tomographic images of the abdomen were obtained with intravenous contrast according to the standard protocol after the uneventful administration of 68 mL Opti-Ray 350 intravenous contrast. COMPARISON: Coronary calcium CT dated 01/10/2025 FINDINGS: Within the lower chest, there is minimal atelectasis but no consolidation, pleural effusion, or pneumothorax within the qrfoc-sp-hiyr. The imaged heart is normal in size without pericardial effusion within the nixbj-tl-ccda. There is a small hepatic cyst in segment 4b. There is mild biliary duct dilation which may represent reservoir effect in the setting of cholecystectomy. The gallbladder is surgically absent. The spleen, pancreas, and adrenal glands are normal. There are bilateral parapelvic renal cysts. There is no hydronephrosis. The imaged large and small bowel are normal in caliber without obstruction. There is no ascites or pneumoperitoneum within the zrxbx-zt-jocu. The abdominal aorta is normal in caliber. There is a peripherally calcified splenic artery aneurysm measuring 1.5 x 1.1 cm in diameter, unchanged from the recent core a CT dated 11/24/2024. No aggressive osseous lesion is identified. IMPRESSION: 1. No acute finding in the abdomen. 2. Stable 1.5 x 1.1 cm peripherally calcified splenic artery aneurysm. Electronically signed by: Naeem Sharif M.D. us Mario Olivo MD IMG CT PROCEDURES Final Resul t * CTA Head Neck W WO Contrast (01/10/2025 2:20 PM CDT) Anatomical Region Laterality Modality Head and Neck N/A Computed Tomogra phy 01/10/2025 3:07 PM CDT Impressions 01/10/2025 3:29 PM CDT 1. No acute intracranial process. 2. No CTA evidence of fibromuscular dysplasia. Dictated by: James Anwar, M.D. The radiology attending physician has personally reviewed this study, and had reviewed and/or edited this written report and agrees with it. Electronically signed by: Guicho Branch M.D, PHD Narrative 01/10/2025 3:29 PM CDT EXAMINATION: 1. Computed tomography angiography (CTA) of the head without and with contrast 2. Computed tomography angiography (CTA) of the neck with contrast HISTORY: Evaluate for fibromuscular dysplasia TECHNIQUE: CT of the head was performed with images acquired from skull base to vertex without intravenous contrast. Computed tomographic angiography was obtained from the aortic arch to the vertex following the uneventful administration of intravenous contrast. 3D images of the CTA were generated on a dedicated workstation/weather observer. Contrast information: 100 mL Optiray-350 IV COMPARISON: None Available. FINDINGS: HEAD: There is no acute intracranial hemorrhage. Ventricles are of normal size and morphology. No mass effect or midline shift is present. The gilmore-white matter differentiation is normal. The visualized portions of the orbits are normal. The visualized portions of the mastoids are normal. The visualized portions of the paranasal sinuses are normal. No fractures are identified. NECK: Scattered subcentimeter lymph nodes are seen in the neck. None are pathologically enlarged. The muscles of the neck are normal. Fascial planes are preserved and the deep spaces of the neck are normal. The visualized airway is widely patent. Thyroid nodules measuring up to 10 mm, below size criteria for specific imaging follow-up. The base of the skull and the temporal bones are normal. Limited views of the brain including the cerebellum and brainstem are normal. The visualized portions of the orbits are normal. Multilevel degenerative changes of the cervical spine with disc osteophyte complexes resulting in mild spinal canal narrowing and uncovertebral facet arthropathy resulting in up to moderate to severe left neural foraminal narrowing at C3-C4 Limited examination of the superior thorax shows no pulmonary infiltrate, suspicious nodules, or pleural effusions. CTA: The visualized aortic arch appears normal with normal configuration of the great vessels. The innominate artery and both subclavian arteries are normal in course and caliber. The common carotid arteries are normal in course and caliber with normal carotid bifurcations bilaterally. Slight beaded appearance of the bilateral cervical ICAs at the C1-C2 level is favored to be secondary to streak artifact. The course and caliber of the internal carotid arteries in the neck are normal. Minimal atherosclerosis. No areas filling defects are identified. The visualized course and caliber of the internal carotid arteries in the head are normal. No areas of atherosclerotic narrowing or filling defects are identified. The xwugby-fi-Aksgmq is complete. The anterior and middle cerebral arteries are normal. Dominant left vertebral artery. The basilar artery is normal. The posterior cerebral arteries are normal. There is no aneurysm or vascular malformation identified. Procedure Note Guicho Branch MD PhD - 01/10/2025 EXAMINATION: 1. Computed tomography angiography (CTA) of the head without and with contrast 2. Computed tomography angiography (CTA) of the neck with contrast HISTORY: Evaluate for fibromuscular dysplasia TECHNIQUE: CT of the head was performed with images acquired from skull base to vertex without intravenous contrast. Computed tomographic angiography was obtained from the aortic arch to the vertex following the uneventful administration of intravenous contrast. 3D images of the CTA were generated on a dedicated workstation/weather observer. Contrast information: 100 mL Optiray-350 IV COMPARISON: None Available. FINDINGS: HEAD: There is no acute intracranial hemorrhage. Ventricles are of normal size and morphology. No mass effect or midline shift is present. The gilomre-white matter differentiation is normal. The visualized portions of the orbits are normal. The visualized portions of the mastoids are normal. The visualized portions of the paranasal sinuses are normal. No fractures are identified. NECK: Scattered subcentimeter lymph nodes are seen in the neck. None are pathologically enlarged. The muscles of the neck are normal. Fascial planes are preserved and the deep spaces of the neck are normal. The visualized airway is widely patent. Thyroid nodules measuring up to 10 mm, below size criteria for specific imaging follow-up. The base of the skull and the temporal bones are normal. Limited views of the brain including the cerebellum and brainstem are normal. The visualized portions of the orbits are normal. Multilevel degenerative changes of the cervical spine with disc osteophyte complexes resulting in mild spinal canal narrowing and uncovertebral facet arthropathy resulting in up to moderate to severe left neural foraminal narrowing at C3-C4 Limited examination of the superior thorax shows no pulmonary infiltrate, suspicious nodules, or pleural effusions. CTA: The visualized aortic arch appears normal with normal configuration of the great vessels. The innominate artery and both subclavian arteries are normal in course and caliber. The common carotid arteries are normal in course and caliber with normal carotid bifurcations bilaterally. Slight beaded appearance of the bilateral cervical ICAs at the C1-C2 level is favored to be secondary to streak artifact. The course and caliber of the internal carotid arteries in the neck are normal. Minimal atherosclerosis. No areas filling defects are identified. The visualized course and caliber of the internal carotid arteries in the head are normal. No areas of atherosclerotic narrowing or filling defects are identified. The jqnvra-it-Fhnarf is complete. The anterior and middle cerebral arteries are normal. Dominant left vertebral artery. The basilar artery is normal. The posterior cerebral arteries are normal. There is no aneurysm or vascular malformation identified. IMPRESSION: 1. No acute intracranial process. 2. No CTA evidence of fibromuscular dysplasia. Dictated by: James Lauren M.D. The radiology attending physician has personally reviewed this study, and had reviewed and/or edited this written report and agrees with it. Electronically signed by: Guicho Branch M.D, PHD us Mario Olivo MD IMG CT PROCEDURES Final Resul t * CT Coronary Calcium Scoring (01/10/2025 2:19 PM CDT) Anatomical Region Laterality Modality Chest Computed Tomogra phy 01/10/2025 3:06 PM CDT Impressions 01/10/2025 4:05 PM CDT 1. Calcium score of 0 2. Incidental findings: Calcified splenic artery aneurysm. Dictated by: Evin Owen MD The radiology attending physician has personally reviewed this study, and had reviewed and/or edited this written report and agrees with it. Electronically signed by: Liam Kessler M.D. Narrative 01/10/2025 4:05 PM CDT EXAMINATION: CT OF THE HEART W/O CONTRAST - CORONARY CALCIUM TECHNIQUE: High-resolution, cardiac-gated Computed Tomography of the heart with attention devoted to the coronary arteries was performed with a 128 slice MDCT Scanner. Coronary calcification was analyzed using a [employer] 3D workstation with calcified plaque analysis software. RESULTS: Interpretation of coronary calcification is provided below: Your patient's Agatston Coronary Calcium score is 0. This total Coronary Calcium score of 0 places this patient in the <1st percentile for an apparently healthy person of the same age and gender. In general, the lower the percentile rank, the lower the cardiac risk. This percentile rank assumes the absence of symptoms. Incidental Findings: Calcified splenic artery aneurysm. Mild atherosclerotic calcifications of the aorta. The Calcium Score should be interpreted in the context of several factors: Clinical decision-making requires the Calcium Score to be weighed along with other factors, i.e. the patient's age, gender, symptoms and risk factors. Normal score for any age is ideally zero. The Calcium Score has greater significance when it is above the 75th percentile of age and sex group. A score of zero indicates no coronary artery calcification and this implies the absence of significant angiographic coronary narrowing in 99% of cases. It does not absolutely rule out the presence of soft non-calcified plaque, especially in younger patients and those who smoke heavily. Procedure Note Short, Liam Starkey MD - 01/10/2025 EXAMINATION: CT OF THE HEART W/O CONTRAST - CORONARY CALCIUM TECHNIQUE: High-resolution, cardiac-gated Computed Tomography of the heart with attention devoted to the coronary arteries was performed with a 128 slice MDCT Scanner. Coronary calcification was analyzed using a [employer] 3D workstation with calcified plaque analysis software. RESULTS: Interpretation of coronary calcification is provided below: Your patient's Agatston Coronary Calcium score is 0. This total Coronary Calcium score of 0 places this patient in the <1st percentile for an apparently healthy person of the same age and gender. In general, the lower the percentile rank, the lower the cardiac risk. This percentile rank assumes the absence of symptoms. Incidental Findings: Calcified splenic artery aneurysm. Mild atherosclerotic calcifications of the aorta. The Calcium Score should be interpreted in the context of several factors: Clinical decision-making requires the Calcium Score to be weighed along with other factors, i.e. the patient's age, gender, symptoms and risk factors. Normal score for any age is ideally zero. The Calcium Score has greater significance when it is above the 75th percentile of age and sex group. A score of zero indicates no coronary artery calcification and this implies the absence of significant angiographic coronary narrowing in 99% of cases. It does not absolutely rule out the presence of soft non-calcified plaque, especially in younger patients and those who smoke heavily. IMPRESSION: 1. Calcium score of 0 2. Incidental findings: Calcified splenic artery aneurysm. Dictated by: Evin Owen MD The radiology attending physician has personally reviewed this study, and had reviewed and/or edited this written report and agrees with it. Electronically signed by: Liam Kessler M.D. us Mario Olivo MD IMG CT PROCEDURES Final Resul t * POC ISTAT (01/10/2025 2:12 PM CDT) Creatinine, POC, bld 1.0 0.6 - 1.3 mg/dL POC Device Number [id number] [facility] Blood 01/10/2025 2:12 PM CDT 01/10/2025 2:12 PM CDT us Mario Olivo MD LAB BLOOD ORDERABLES Final Re sult [facility] [id number] [facility]. [place] [address] * ECG 12 lead (12/27/2024 10:18 AM CDT) us Mario Olivo MD ECG ORDERABLES Edited Result - Final * TRANSTHORACIC ECHO (TTE) COMPLETE W DOPPLER/CF WO CONTRAST (11/16/2024 10:51 AM CDT) EF Mod BP 64 % CONS SCIMAGE Anatomical Region Laterality Modality Ultrasound 11/16/2024 9:49 AM CDT Narrative 11/16/2024 4:06 PM CDT [facility] [place] [place] [address] Transthoracic Echocardiographic Report Patient Name: PADMINI RODRÍGUEZ A : 1955 (68y 11m) Gender: F Study Date: 11/16/2024 09:49:52 AM Ht(Inch): 61 Wt(Lb): 126.1 BSA: 1.57 Chief Pilot: Irma [facility] Location: [facility] Order Provider: MARLAELTERESSAGONZÁLEZ Heart Rate: 49 BMI: 23.82 BP: 137 / 77 Ref Provider: TERESSA ADAMSALLYSONFRANCINE PROCEDURES: Echocardiographic Report: Transthoracic complete echo, 2D, spectral and tissue Doppler, color flow Doppler, M-mode. Additional Procedures: Myocardial strain imaging was performed. INDICATIONS: I49.3 Ventricular premature depolarization. CONCLUSIONS: 1. Normal left ventricular size based on volume index. Normal LV wall thickness. Normal left ventricular systolic function. The Ejection Fraction (Madrigal's) is measured at 64 %. Normal diastolic function. The average global longitudinal strain is normal. 2. There are no regional wall motion abnormalities. 3. Normal right ventricular size. Normal right ventricular systolic function. 4. Mild mitral valve regurgitation. 5. The Estimated RVSP is : 14.0 mmHg. COMPARISONS: No previous study available for comparison. ATTESTATION: I have personally reviewed and interpreted this study without fellow or resident. - DISCLAIMER: The study images and the final report will be retained in the patient chart by the [facility] for the legally required time period. This chart constitutes the legal record of any testing performed. FINDINGS: Left Ventricle: Normal left ventricular size based on volume index. Normal LV wall thickness. Normal left ventricular systolic function. The Ejection Fraction (Madrigal's) is measured at 64 %. Normal diastolic function. The average global longitudinal strain is normal. The LV global strain is: -20.6 %. Regional Wall Motion: There are no regional wall motion abnormalities. Right Ventricle: Normal right ventricular size. Normal right ventricular systolic function. Left Atrium: The left atrium is normal in size. Right Atrium: The right atrium is normal in size. Atrial Septum: Normal interatrial septum. Mitral Valve: Normal mitral valve structure. Mild mitral valve regurgitation. No stenosis present. Aortic Valve: Normal trileaflet aortic valve. No aortic regurgitation. No aortic valve stenosis. The mean transaortic gradient is 2 mmHg. The aortic valve area by the continuity equation (using VTI) is 2.5 cm2. Aortic valve dimensionless index is 0.83. Tricuspid Valve: Normal tricuspid valve structure. Mild tricuspid regurgitation. The Estimated RVSP is : 14.0 mmHg. No tricuspid valve stenosis. Pulmonic Valve: Normal pulmonic valve structure. Mild pulmonic regurgitation. No pulmonic valve stenosis present. Pericardium: Normal pericardium without pericardial effusion. Aorta: Normal aortic root size at sinuses of Valsalva. Dilation of the aortic root when indexed. IVC: IVC is normal in size. The IVC was <2.1 cm and collapsibility >50%. (est. RA pressure 0-5 mmHg). PASP: Normal estimated pulmonary artery systolic pressure. Rhythm: Normal Sinus rhythm was seen during the study. MEASUREMENTS: 2D/MM Value Range Doppler Value Range LVIDd 2D 4.50 cm [ 3.80 - 5.20 ] AV Peak Néstor 1.0 m/s [ 1.0 - 1.7 ] LVIDs 2D 3.07 cm [ 2.20 - 3.50 ] AV Peak PG 4.00 mmHg IVSd 2D 0.58 cm [ 0.60 - 0.90 ] AV Mean PG 2 mmHg LVPWd 2D 0.57 cm [ 0.60 - 0.90 ] AV VTI 22.4 cm LV Thickness Ratio 1.0 LVOT Peak Néstor 0.8 m/s [ 0.7 - 1.1 ] LV FS 2D 31.81 % [ 27.00 - 45.00 ] LVOT Peak PG 2.56 mmHg LV Mass 2D 77.76 g LVOT Mean PG 1 mmHg LV Mass Index 2D 49.53 g/m2 LVOT VTI 18.6 cm RWT 0.25 LVOT Diam 1.96 cm EDV Mod BP 90.26 ml [ 46.00 - 106.00 ] SABINA VTI 2.50 cm2 LV EDV Index 57.49 ml/m2 LVOT/AV VTI 0.83 - Dimensionless index (DVI) ESV Mod BP 32.48 ml [ 14.00 - 42.00 ] MV E Peak Néstor 0.5 m/s [ 0.6 - 1.3 ] EF Mod BP 64 % [ 54 - 74 ] MV A Peak Néstor 0.6 m/s [ 1.0 - 1.2 ] LV GLS -20.6 % [ -25.0 - -18.0 ] MV E/A 1.0 ratio [ 0.8 - 1.5 ] LA Length 4C 4.20 cm MV Decel Time 193.17 msec [ 104.00 - 258.00 ] LA Length 2C 4.70 cm Med E` Néstor 5.9 cm/sec [ 8.0 - 25.0 ] LA Volume BP 36.53 ml Lat E` Néstor 9.7 cm/sec [ 10.0 - 25.0 ] LA Volume Index 23.27 ml/m2 [ 16.00 - 34.00 ] Average E/E` 6.41 RV Base Dimen 2D 3.5 cm [ 2.5 - 4.2 ] RV S` 14.25 cm/sec TAPSE 2.30 cm [ 1.71 - 5.00 ] TR Peak Néstor 1.9 m/s [ 1.0 - 2.8 ] RA Volume 27.92 ml TR Peak PG 14.4 mmHg RA Volume Index 17.78 ml/m2 PV Peak Néstor 0.8 m/s [ 0.4 - 0.8 ] AoR Diam 2D 3.30 cm [ 2.70 - 3.70 ] PV Peak PG 2.56 mmHg Ao Root Index 2.10 cm/m2 [ 1.00 - 2.00 ] Electronically Signed By: Nicola Romero MD 11/16/2024 4:06:39 PM CDT Procedure Note Nicola Elliott MD - 11/16/2024 [facility] [place] [address] Transthoracic Echocardiographic Report Patient Name: PADMINI RODRÍGUEZ A : 1955 (68y 11m) Gender: F Study Date: 11/16/2024 09:49:52 AM Ht(Inch): 61 Wt(Lb): 126.1 BSA: 1.57 Chief Pilot: Irma [facility] Location: [facility] Order Provider:JENARO ADAMS Heart Rate: 49 BMI: 23.82 BP: 137 / 77 Ref Provider: JENARO ADAMS PROCEDURES: Echocardiographic Report: Transthoracic complete echo, 2D, spectral andtissue Doppler, color flow Doppler, M-mode. Additional Procedures: Myocardial strain imaging was performed. INDICATIONS: I49.3 Ventricular premature depolarization. CONCLUSIONS: 1. Normal left ventricular size based on volume index. Normal LV wallthickness. Normal left ventricular systolic function. The Ejection Fraction (Madrigal's) ismeasured at 64 %. Normal diastolic function. The average global longitudinal strain isnormal. 2. There are no regional wall motion abnormalities. 3. Normal right ventricular size. Normal right ventricular systolicfunction. 4. Mild mitral valve regurgitation. 5. The Estimated RVSP is : 14.0 mmHg. COMPARISONS: No previous study available for comparison. ATTESTATION: I have personally reviewed and interpreted this study without fellow orresident. - DISCLAIMER: The study images and the final report will be retained in the patientchart by the [facility] Laboratory for the legally required time period. This chart constitutesthe legal record of any testing performed. FINDINGS: Left Ventricle: Normal left ventricular size based on volume index. NormalLV wall thickness. Normal left ventricular systolic function. The EjectionFraction (Madrigal's) is measured at 64 %. Normal diastolic function. The average globallongitudinal strain is normal. The LV global strain is: -20.6 %. Regional Wall Motion: There are no regional wall motion abnormalities. Right Ventricle: Normal right ventricular size. Normal right ventricularsystolic function. Left Atrium: The left atrium is normal in size. Right Atrium: The right atrium is normal in size. Atrial Septum: Normal interatrial septum. Mitral Valve: Normal mitral valve structure. Mild mitral valveregurgitation. No stenosis present. Aortic Valve: Normal trileaflet aortic valve. No aortic regurgitation. Noaortic valve stenosis. The mean transaortic gradient is 2 mmHg. The aortic valve areaby the continuity equation (using VTI) is 2.5 cm2. Aortic valve dimensionlessindex is 0.83. Tricuspid Valve: Normal tricuspid valve structure. Mild tricuspidregurgitation. The Estimated RVSP is : 14.0 mmHg. No tricuspid valve stenosis. Pulmonic Valve: Normal pulmonic valve structure. Mild pulmonicregurgitation. No pulmonic valve stenosis present. Pericardium: Normal pericardium without pericardial effusion. Aorta: Normal aortic root size at sinuses of Valsalva. Dilation of theaortic root when indexed. IVC: IVC is normal in size. The IVC was <2.1 cm and collapsibility >50%.(est. RA pressure 0-5 mmHg). PASP: Normal estimated pulmonary artery systolic pressure. Rhythm: Normal Sinus rhythm was seen during the study. MEASUREMENTS: 2D/MM Value Range DopplerValue Range LVIDd 2D 4.50 cm [ 3.80 - 5.20 ] AV Peak Vel1.0 m/s [ 1.0 - 1.7 ] LVIDs 2D 3.07 cm [ 2.20 - 3.50 ] AV Peak PG4.00 mmHg IVSd 2D 0.58 cm [ 0.60 - 0.90 ] AV Mean PG2 mmHg LVPWd 2D 0.57 cm [ 0.60 - 0.90 ] AV VTI22.4 cm LV Thickness Ratio 1.0 LVOT Peak Vel0.8 m/s [ 0.7 - 1.1 ] LV FS 2D 31.81 % [ 27.00 - 45.00 ] LVOT Peak PG2.56 mmHg LV Mass 2D 77.76 g LVOT Mean PG1 mmHg LV Mass Index 2D 49.53 g/m2 LVOT VTI18.6 cm RWT 0.25 LVOT Diam1.96 cm EDV Mod BP 90.26 ml [ 46.00 - 106.00 ] SABINA VTI2.50 cm2 LV EDV Index 57.49 ml/m2 LVOT/AV VTI0.83 - Dimensionless index (DVI) ESV Mod BP 32.48 ml [ 14.00 - 42.00 ] MV E Peak Vel0.5 m/s [ 0.6 - 1.3 ] EF Mod BP 64 % [ 54 - 74 ] MV A Peak Vel0.6 m/s [ 1.0 - 1.2 ] LV GLS -20.6 % [ -25.0 - -18.0 ] MV E/A1.0 ratio [ 0.8 - 1.5 ] LA Length 4C 4.20 cm MV Decel Qktk332.17 msec [ 104.00 - 258.00 ] LA Length 2C 4.70 cm Med E` Vel5.9 cm/sec [ 8.0 - 25.0 ] LA Volume BP 36.53 ml Lat E` Vel9.7 cm/sec [ 10.0 - 25.0 ] LA Volume Index 23.27 ml/m2 [ 16.00 - 34.00 ] Average E/E`6.41 RV Base Dimen 2D 3.5 cm [ 2.5 - 4.2 ] RV S`14.25 cm/sec TAPSE 2.30 cm [ 1.71 - 5.00 ] TR Peak Vel1.9 m/s [ 1.0 - 2.8 ] RA Volume 27.92 ml TR Peak PG14.4 mmHg RA Volume Index 17.78 ml/m2 PV Peak Vel0.8 m/s [ 0.4 - 0.8 ] AoR Diam 2D 3.30 cm [ 2.70 - 3.70 ] PV Peak PG2.56 mmHg Ao Root Index 2.10 cm/m2 [ 1.00 - 2.00 ] Electronically Signed By: Nicola Romero MD 11/16/2024 4:06:39 PM CDT Jenaro Adams MD CV ECHO PROCEDUR ES Final Result from Last 3 Months Insurance MEDICARE FOR LIFE MEDICARE FOR LIFE Care Teams Linux Devops Engineer Relationship Specialty Start Date End Date Neida Espinosa MD [address] [facility] [address] [place] [address] PCP - General 11/14/15
--- OUTSIDE RECORDS SUMMARY | 2025-02-08 07:04 | XMS_ITS | Clinical Summary ---
Author Organization [facility] Address [address] [place] [address] Care Team Providers Care Permanent Waver Name Role Phone Beatriz Dillard APRN, NP-C Unavailable Florentino Little MD Primary Care Provider [phone] Allergies Active Allergy Reactions Criticality Noted Date Comments Cephalexin Vomiting Low 07/10/2019 Penicillins Other (see comment) Low 07/10/2019 Yeast infection Yeast infection Medications pravastatin (PRAVACHOL) 10 MG tablet Take 1 tablet (10 mg total) by mouth nightly at bedtime. at bedtime 07/18/2022 Active VITAMIN D, ERGOCALCIFEROL, 1.25 MG (16815 UT) capsule Take by mouth every 7 days. 03/14/2022 Active alendronate (FOSAMAX) 70 MG tablet Take 1 tablet (70 mg total) by mouth once a week. 08/02/2022 Active aspirin EC (ECOTRIN) 81 MG tablet Take 1 tablet (81 mg total) by mouth daily. Active Black Cohosh 40 MG Cap Take 1 capsule by mouth daily. Active NEDA-RUL PSYLLIUM SEED HUSKS OR Take 500 mg by mouth daily. Active Magnesium 500 MG Cap Take 1 capsule by mouth daily. Active valACYclovir (VALTREX) 500 MG tablet Take 1 tablet (500 mg total) by mouth daily. 07/31/2024 Active Active Problems Problem Noted Date Diagnosed Date Hyperlipidemia 10/27/2023 Fibromuscular dysplasia of carotid artery 2023 PVC (premature ventricular contraction) Resolved Problems Problem Noted Date Diagnosed Date Resolved Date Atherosclerosis of both carotid arteries 11/27/2022 10/27/2023 Family History Medical History Relation Comments Heart Attack Mother Relation Status Comments Father Mother (Age 89) Social History Tobacco Use Types Packs/Day Years Used Date Smoking Tobacco: Never Smokeless Tobacco: Never Tobacco Cessation:Counseling Given: Not Answered Alcohol Use Standard Drinks/Week Comments Never 0 (1 standard drink = 0.6 oz pur e alcohol) Comments Unknown Sex and Gender Information Value Date Recorded Sex Assigned at Female 08/23/2024 10:12 AM CDT 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 Gender Identity Not on file Sexual Orientation Not on file Last Filed Vital Signs Vital Sign Reading Time Taken Comments Blood Pressure 124/80 08/23/2024 10:28 AM CDT Pulse 69 08/23/2024 10:28 AM CDT Temperature - - Respiratory Rate 18 08/23/2024 10:28 AM CDT Oxygen Saturation 98% 08/23/2024 10:28 AM CDT Inhaled Oxygen Concentration - - Weight 57.6 kg (127 lb) 08/23/2024 10:28 AM CDT Height 154.9 cm (5' 1) 08/23/2024 10:28 AM CDT Body Mass Index 24 08/23/2024 10:28 AM CDT Plan of Treatment Upcoming Encounters Date Type Department Care Team (Late st Contact Info) Description 03/08/2025 10:30 AM CDT Office Visit [facility] Family Medicine [facility] [address] [place] [id number] Bianca Wheeler MD [address] [place] [address] [id number] Health Maintenance Due Date Last Done Comments Colorectal Cancer Screening Colonoscopy (10 Years) 1954 Hepatitis C 1972 DTaP, Tdap and Td Vaccines (1 - Tdap) 1973 Mammogram Screening 1994 Pneumococcal Vaccine: 50+ Years (1 of 1 - PCV) 2004 Zoster Vaccines (2 of 3) 06/01/2015 04/06/2015 Annual Medicare Wellness Visit 12/11/2019 Dexa Scan (General) 12/11/2019 COVID-19 Vaccine ( season) 2024 03/27/2022, 09/22/2021, 04/18/2021, Additional history exists RSV Immunization or 60+ Years (1 - 1-dose 75+ series) 2029 Meningococcal B Vaccine Aged Out No l onger eligible based on patient's age to complete this topic Meningococcal Vaccine Aged Out No avelina wilfrido eligible based on patient's age to complete this topic RSV Immunizations Under 20 Months Aged Out No longer eligible based on patient's age to complete this topic Insurance MEDICARE [facility] maker[employer] Care Teams Permanent Waver Relationship Specialty Start Date End Date Florentino Little MD [address] [facility] [address] [place] [address] PCP - General FAMILY PRACTICE 3/19/25 Beatriz Dillard, SRIKANTH, BUTTON BRADDER-C [address] [phone] NURSE PRACTITIONER 01/21/24
--- OUTSIDE RECORDS SUMMARY | 2025-02-08 07:04 | XMS_ITS | Encounter Summary ---
Author Organization [facility] Address [address] [place] [address] Phone Care Team Providers Care Middle [employer] French Teacher Name Role Phone Neida Espinosa MD Primary Care Provider Encounter Details Date Type Department Care Team (Late st Contact Info) Description 12/27/2024 Results Follow-Up [facility] Medicine Cardiology [address] [facility] Advanced Medicine 8th [place] [address] [place] [address] Mario Olivo MD [address] [facility] [address] [place], [place] [id number] ECG 12 lead, CTA Head Neck W WO Contrast, CT Coronary Calcium Scoring Social History Tobacco Use Types Packs/Day Years Used Date Smoking Tobacco: Never Smokeless Tobacco: Never Alcohol Use Standard Drinks/Week Comments No 0 (1 standard drink = 0.6 oz pur e alcohol) Comments Unknown Sex and Gender Information Value Date Recorded Sex Assigned at Not on file 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 It does not exclude the possibility of atherosclerosis that has not progressed to calcification. There was mild atherosclerotic calcification within the aorta. 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 This study was not performed specifically for evaluating this structure and was done without contrast. In some cases, these structures are managed just with observation, but if they get large enough, then treatment may be recommended to prevent rupture. I would recommend a contras-enhanced abdominal CTA (pelvis not needed) specifically to evaluate andsize the splenic artery aneurysm. * Result Encounter Note - Mario Olivo MD - 01/11/2025 3:39 PM CDT Head and neck CTA: Please let her know that the study did not show any evidence of fibromuscular dysplasia affecting the carotid arteries and there was minimal atherosclerosis--good news. There was incidental finding of small thyroid nodules below the threshold for imaging follow-up. There was also cervical DDD with mild spinal canal narrowing and moderate to severe narrowing at the left C3-C4 neural foramen. In some patients, this can result in neck pain, or pain/numbness/tingling/weakness of the left shoulder/arm. documented in this encounter Plan of Treatment Not on file documented as of this encounter Visit Diagnoses Not on filedocumented in this encounter Care Teams Middle [employer] French Teacher Relationship Specialty Start Date End Date Neida Espinosa MD [address] [facility] [address] [place] [id number] PCP - General 11/14/15 documented as of this encounter
--- OUTSIDE RECORDS SUMMARY | 2025-02-08 07:04 | XMS_ITS | Clinical Summary ---
Author Organization [facility] Address [address] [address] Care Team Providers Care Engraving Press Operator Name Role Phone Neida Espinosa MD Primary Care Provider + Source Comments [facility],non-owned Affiliates and Associated Physician Practices is amultiple site organization consisting of ambulatory clinics and hospital sitesin [place], [place], [place] and [place]. This disclosure is being madepursuant to the Care Everywhere program and may not contain all information available regarding this patient. Last updated 18.[facility] Allergies Active Allergy Reactions Criticality Noted Date Comments Cephalexin Vomiting 07/10/2019 Penicillins Other 07/10/2019 Yeast infection Medications * Be aware that medications may not be up to date on this document. Alwaysverify current medications with the patient. 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 Gender Identity Not on file Sexual Orientation Not on file Last Filed Vital Signs Vital Sign Reading Time Taken Comments Blood Pressure 128/86 07/10/2019 4:57 PM SOFT BOARDER Pulse 60 07/10/2019 4:57 PM SOFT BOARDER Temperature 37 C (98.6 F) 07/10/2019 4:57 PM SOFT BOARDER Respiratory Rate 16 07/10/2019 4:57 PM SOFT BOARDER Oxygen Saturation 97% 07/10/2019 4:57 PM SOFT BOARDER Inhaled Oxygen Concentration - - Weight 60.3 kg (133 lb) 07/10/2019 4:57 PM SOFT BOARDER Height 157.5 cm (5' 2) 07/10/2019 4:57 PM SOFT BOARDER Body Mass Index 24.33 07/10/2019 4:57 PM SOFT BOARDER Plan of Treatment Health Maintenance Due Date Last Done Comments BONE DENSITY TESTING 1955 COLOGUARD (AGES 45-75) - COL ON CA SCREENING 1955 COLON MONITORING 1955 COLONOSCOPY - COLON CA SCREENING 1954 CT COLONOGRAPHY - COLON CA SCREENING 1955 Colorectal Cancer Screening 1955 FIT - COLON CA SCREENING 1955 FLEX SIG - COLON CA SCREENING 1955 LIPID TESTING 1955 MAMMOGRAM 1955 HEPATITIS C SCREENING 12/05/1972 DTAP/TDAP/TD VACCINES (1 - Tdap) 1973 PNEUMOCOCCAL VACCINE 50+ (1 of 1 - PCV) 2004 ZOSTER VACCINE (1 of 2) 2004 COVID-19 VACCINE (1 - 2023-2 5 season) 2024 DEPRESSION SCREENING 06/07/2024 INFLUENZA VACCINE (#1) 2025 Respiratory Syncytial Virus (RSV) Vaccine Pt: or over 60 yrs (1 - 1-dose 75+ series) 2029 HEPATITIS B VACCINE Aged Out No longe r eligible based on patient's age to complete this topic HIB VACCINE Aged Out No longer eligi ble based on patient's age to complete this topic HPV VACCINE Aged Out No longer eligi ble based on patient's age to complete this topic MENINGOCOCCAL (Group B) VACC INE SHARED DECISION-MAKING Aged Out No longer eligibl e based on patient's age to complete this topic MENINGOCOCCAL GROUPS A/C/Y/W VACCINE Aged Out No longer eligible b ased on patient's age to complete this topic Insurance Care Teams Engraving Press Operator Relationship Specialty Start Date End Date Neida Espinosa MD [address] [place] [address] PCP - General Family Medicine 07/10/19
[2025-02-08 08:47] LABS: Cholesterol 166 mg/dL (0-200); HDL Direct 63 mg/dL; Triglycerides 154 mg/dL (<150)
== END 2025-02-08 06:57 | disposition home or self-care (01) ==
PROVIDERS: PCP Family Medicine; Visit Provider Internal Medicine Cardiovascular Disease
DX: I77.9 Disorder of arteries and arterioles, unspecified (principal); I49.3 Ventricular premature depolarization; E78.5 Hyperlipidemia, unspecified
CPT/HCPCS: 36415; 80061; 83695

== ENCOUNTER 2025-02-15 08:03 | Outpatient (CLI) | payer MEDICARE, OTHER, SELFPAY ==
--- OUTSIDE RECORDS SUMMARY | 2014-03-02 02:45 | XMS_ITS | Continuity of Care Document ---
Author Organization [facility] Address [address] [place] [address] Phone Care Team Providers Care Registered Physical Therapist Name Role Phone Diana OD OD, Jay [...] Visit Post-op Follow-up Visit Comanaged Refractive Fee ([facility]) 14 Comanaged Refractive Fee ([facility]) 14 Refractive Evaluation Advance Directives Directive Yes / No Effective Date File Name No Information Encounters Encounter Description Practice Location Reason(s) For Visit Diagnoses Date Provider Providers Copied on Encounter [facility], [address] [place] [address] [address], [place], [place], [address], [place] tel:[phone] SEC [facility] Ball No Information Alexeny OD Jay. [address] [facility], [place], [place], [address], [place]. tel:[phone] [facility], [address], [place], [place], [address], [place] tel:[phone] SEC [facility] No Information Alexeny OD Jay. [address] [facility], [place], [place], [address], [place]. tel:[phone] Referring Provider: Jay Ortiz OD P, [address] [facility], [place], [address] . tel:[phone] [facility], [address], [place], [place], [address], [place] tel:[phone] [facility] No Information Arianay OD Jay. [address] [place], [place], [address], [place]. tel:[phone] Referring Provider: Jay Ortiz OD P, [address] [facility], [place], [address] . tel:[phone] [facility], [address], [place], [place], [address], [place] tel:[phone] [facility] No Information Arianakirilleny OD Jay. [address] [place], [place], [address], [place]. tel:[phone] Referring Provider: Jay Ortiz OD P, [address] [place], [address] . tel:[phone] [facility], [address], [place], [place], [address], [place] tel:[phone] [facility] Follow Up of 1 DAY PO PRK OU (chief complaint) Post-op follow up Diana Thompson. [address] [place], [place], [address], . tel:[phone] Referring Provider: Jay Ortiz OD P, [address] [place], [address] . tel:[phone] [facility], [address] [place] [address] [address], [place], [address], tel:[phone] [facility] No Information Diana Thompson. [address] [place], [place], [address], . tel:[phone] [facility], [address] [place] [address] [address], [place], [place], [address], tel:[phone] [facility] EYE & VISION EXAMINATION Diana Thompson. [address] [place], [place], [address], . tel:[phone] Referring Provider: Jay Ortiz OD P, [address] [place], [address] . tel:[phone] Family History Family Member Type Diagnosis Age At Onset No Information Payers Payer name Insurance type Covered green party ID Authoriza tion(s) No Information Social [...] Wyatt during surgery, monitor for progression, consider [id number] to call if symptoms worsen or do [...]
--- OUTSIDE RECORDS SUMMARY | 2025-02-15 08:28 | XMS_ITS | Encounter Summary ---
Author Organization [facility] Address [address] [place] [address] Care Team Providers Care Integrated Circuit Design Engineer Name Role Phone Neida Espinosa MD Primary Care Provider Encounter Details Date Type Department Care Team (Late st Contact Info) Description 01/30/2025 Results Follow-Up Cardiology Mario Olivo MD [address] [address] [address] abdomen with contrast Social History Tobacco Use Types Packs/Day Years Used Date Smoking Tobacco: Never Smokeless Tobacco: Never Alcohol Use Standard Drinks/Week Comments No 0 (1 standard drink = 0.6 oz pur e alcohol) Comments Unknown Sex and Gender Information Value Date Recorded Sex Assigned at Not on file Legal Sex 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
--- OUTSIDE RECORDS SUMMARY | 2025-02-15 08:28 | XMS_ITS | Patient Health Record ---
Author Organization [facility] Address [address] [place], [place] [id number] Support Name Relationship Address Phone JANES RODRÍGUEZ Guarantor Unknown Reason For Referral No Information Medications Medication SIG (Take, Route, Frequency, Duration) Notes Start Date End Date Status tramadol hydrochloride 50 MG Oral Tablet ORAL tramadol hydrochloride 50 MG Oral TabletOriginal Medicationtramadol hydrochloride 50 MG Oral Tablet *Reorder from [employer] for eRx and Interaction Alerts* 3 Active diclofenac sodium 25 MG Delayed Release Oral Tablet ORAL diclofenac sodium 25 MG Delayed Release Oral TabletOriginal Medicationdiclofenac sodium 25 MG Delayed Release Oral Tablet *Reorder from [employer] for eRx and Interaction Alerts* 2 Active ciclopirox 80 MG/ML Topical Solution [[place] Nail Lacquer] ciclopirox 80 MG/ML Topical Solution [[place] Nail Lacquer]Original Medicationciclopirox 80 MG/ML Topical Solution [[place] Nail Lacquer] *Reorder from [employer] for eRx and Interaction Alerts* 3 Active acetaminophen 300 MG / hydrocodone bitartrate 5 MG Oral Tablet ORAL acetaminophen 300 MG / hydrocodone bitartrate 5 MG Oral TabletOriginal Medicationacetaminophen 300 MG / hydrocodone bitartrate 5 MG Oral Tablet *Reorder from [employer] for eRx and Interaction Alerts* 3 Active Plan Of Treatment No Information Insurance Providers Payer Name Payer Address Payer Phone Subscriber Number Group Number Insured Name Patient Relationship to Insured Coverage Start Date Coverage End Date [facility] [place] ATTN CLAIMS [address] [place] [address] [id number] JANES YANG Self - patient is the insured [facility] ATTN CLAIMS [address] [place] [address] [id number] JANES YANG Self - patient is the insured
--- OUTSIDE RECORDS SUMMARY | 2025-02-15 08:28 | XMS_ITS | Clinical Summary ---
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 Advanced Medicine 8th [place] [address] [place] [address] Mario Olivo MD Splenic artery aneurysm (Primary Dx) 01/30/2025 1:53 PM CDT - 01/30/2025 11:59 PM CDT Hospital Encounter [facility]) [address] [place] [address] Mario Olivo MD Splenic artery aneurysm Discharge Disposition: Discharge to home or self care 01/30/2025 Results Follow-Up Cardiology Mario Olivo MD CT abdomen with contrast 01/16/2025 Telephone [facility] [address] [facility] Advanced Medicine 8th [place] [address] [place] [address] Mario Olivo MD 01/12/2025 Telephone [facility] [address] [facility] Advanced [facility] 8th [place] [address] [place] [address] Mario Olivo MD 01/10/2025 2:01 PM CDT - 01/10/2025 11:59 PM CDT Hospital Encounter [facility] Imaging [address] [address] Mario Olivo MD Carotid artery disorder; PVC's (premature ventricular contractions); Dyslipidemia Discharge Disposition: Discharge to home or self care 01/10/2025 2:01 PM CDT - 01/10/2025 11:59 PM CDT Hospital Encounter [facility] Imaging [address] [place] [address] Mario Olivo MD Carotid artery disorder; PVC's (premature ventricular contractions); Dyslipidemia Discharge Disposition: Discharge to home or self care 01/02/2025 Telephone [facility] Cardiology [address] [place] [address] [place] [address] Jenaro Adams MD 12/27/2024 10:00 AM CDT Office Visit [facility] Cardiology [address] [place] [phone] Mario Olivo MD Carotid artery disorder (Primary Dx); PVC's (premature ventricular contractions); Dyslipidemia; Family history of premature CAD 12/27/2024 Telephone [facility]iology [address] [place] [phone] Mario Olivo MD Scheduling Testing/Treatment 12/27/2024 Results Follow-Up [facility] [address] [place] [phone] Mario Olivo MD ECG 12 lead, CTA Head Neck W WO Contrast, CT Coronary Calcium Scoring 11/16/2024 8:48 AM CDT - 11/16/2024 11:59 PM CDT Hospital Encounter [facility] [address] [place] [phone] PVC (premature ventricular contraction) Discharge Disposition: Discharge to home or self care from Last 3 Months Medical History Medical History Date Comments Hx Other Medical chronic right f oot pain, functional diarrhea; Comments: MAF 11/13/2015 - Family History Medical History Relation Name Comments Diabetes Father Family history of diabetes mellitus (DM) - (Added by TW Conv) Other Father Pics Diease; Ca use of : Pics Diease Arrhythmia Mother Family history of pacemaker - (Added by TW Conv) Heart attack Mother Myocardial infa rction; /Family history of heart attack - (Added by TW Conv) Relation Name Status Comments Father Mother Social History Tobacco Use Types Packs/Day Years Used Date Smoking Tobacco: Never Smokeless Tobacco: Never Alcohol Use Standard Drinks/Week Comments No 0 (1 standard drink = 0.6 oz pur e alcohol) Comments Unknown Sex and Gender Information Value Date Recorded Sex Assigned at Not on file Legal Sex Female 2:44 AM HANDWRITING EXPERT Gender Identity Female 05/16/2020 7:34 AM HANDWRITING EXPERT Sexual Orientation Not on file Obstetrics History [...] Procedure Name Priority Date/Time Associated Diagnosis Comments SCAN - LABS 02/08/2025 CT ABDOMEN W CONTRAST Schedule Routine, Read [...] contraction) from Last 3 Months Results * SCAN - LABS (02/08/2025) us Provider Scanning Edited Result - Final * CT abdomen with contrast (01/30/2025 2:45 [...] consolidation, pleural effusion, or pneumothorax within the ymxer-ul-wvha. The imaged heart is normal in size without pericardial effusion within the hbqly-of-fvaz. There is a small hepatic cyst in [...] is no ascites or pneumoperitoneum within the dhxst-cr-liuq. The abdominal aorta is normal in caliber. [...] consolidation, pleural effusion, or pneumothorax within the ggktg-mu-qubc. The imaged heart is normal in size without pericardial effusion within the vpgao-we-uhps. There is a small hepatic cyst in [...] is no ascites or pneumoperitoneum within the xoanc-qe-vznw. The abdominal aorta is normal in caliber. [...] the CTA were generated on a dedicated workstation/buffet server. Contrast information: 100 mL Optiray-350 IV COMPARISON: [...] narrowing or filling defects are identified. The spyqhs-qq-Xqqxfm is complete. The anterior and middle cerebral [...] the CTA were generated on a dedicated workstation/buffet server. Contrast information: 100 mL Optiray-350 IV COMPARISON: [...] narrowing or filling defects are identified. The pwqrwm-jw-Jnhefl is complete. The anterior and middle cerebral [...] Scanner. Coronary calcification was analyzed using a Vital Plastio 3D workstation with calcified plaque analysis software. [...] and those who smoke heavily. Procedure Note Liam Kessler MD - 01/10/2025 EXAMINATION: CT OF THE HEART W/O CONTRAST - CORONARY CALCIUM TECHNIQUE: High-resolution, cardiac-gated Computed Tomography of the heart with attention devoted to the coronary arteries was performed with a 128 slice MDCT Scanner. Coronary calcification was analyzed using a Vital Plastio 3D workstation with calcified plaque analysis software. [...] 0.6 - 1.3 mg/dL POC Device Number [id number] [facility] Blood 01/10/2025 2:12 PM CDT 01/10/2025 2:12 PM CDT Mario Olivo MD LAB BLOOD ORDERABLES Final Re sult [facility] [address] [facility]. Department of Laboratories [place], [place] [id number] * ECG 12 lead (12/27/2024 10:18 AM CDT) Mario Olivo MD ECG ORDERABLES Edited Result - Final * TRANSTHORACIC ECHO (TTE) COMPLETE W DOPPLER/CF WO CONTRAST (11/16/2024 10:51 AM CDT) EF Mod BP 64 % CONS SCIMAGE Anatomical Region Laterality Modality Ultrasound 11/16/2024 9:49 AM CDT Narrative 11/16/2024 4:06 PM CDT [facility] [place] [address] Transthoracic Echocardiographic Report Patient Name: PADMINI RODRÍGUEZ A : 1955 (68y 11m) Gender: F Study Date: 11/16/2024 09:49:52 AM Ht(Inch): 61 Wt(Lb): 126.1 BSA: 1.57 Job Putter Up And Ticket Preparer: Irma [facility] Location: [facility] Order Provider: JENARO ADAMS Heart Rate: 49 BMI: 23.82 BP: [...] Procedure Note Nicola Elliott MD - 11/16/2024 [facility] [place] [address] Transthoracic Echocardiographic Report Patient Name: PADMINI RODRÍGUEZ A : 1955 (68y 11m) Gender: F Study Date: 11/16/2024 09:49:52 AM Ht(Inch): 61 Wt(Lb): 126.1 BSA: 1.57 Job Putter Up And Ticket Preparer: Irma [facility] Location: [facility] Order Provider:JENARO ADAMS Heart Rate: 49 BMI: [...] LA Length 4C 4.20 cm MV Decel Vlsl484.17 msec [ 104.00 - 258.00 ] LA [...] Result from Last 3 Months Insurance MEDICARE [place] MEDICARE [facility] Care Teams Sheet Metal Shop Supervisor Relationship Specialty Start Date End Date Neida Espinosa MD [address] [place] [address] PCP - General 11/14/15
--- OUTSIDE RECORDS SUMMARY | 2025-02-15 08:28 | XMS_ITS | Encounter Summary ---
Author Organization [facility] Address [address] [place] [address] Phone Care Team Providers Care Sole Conditioner Name Role Phone Neida Espinosa MD Primary Care Provider Encounter Details Date Type Department Care Team (Late st Contact Info) Description 12/27/2024 Results Follow-Up [facility] Medicine Cardiology [address] [facility] Advanced Medicine 8th [place] [address] [place] [address] Mario Olivo MD [address] [facility] [address] [place], [place] [id number] ECG 12 lead, CTA Head Neck W [...] on file Legal Sex Female 2:44 AM COINING PRESS OPERATOR Gender Identity Female 05/16/2020 7:34 AM COINING PRESS OPERATOR Sexual Orientation Not on file documented [...] on filedocumented in this encounter Care Teams Sole Conditioner Relationship Specialty Start Date End Date Neida Epsinosa MD [address] [facility] [address] [place] [id number] PCP - General 11/14/15 documented as of this encounter
[2025-02-15 09:09] LABS: Hematocrit 43.9 % (37.0-47.0); Hemoglobin 13.9 g/dL (12.0-15.0); Immature Granulocyte Percent A 0.4 % (0-0.5); Lymphocytes Absolute Auto 1.51 K/mm3 (0.9-3.2); Mean Corpuscular HGB Conc 31.7 g/dl (32-36); Mean Corpuscular Hemoglobin 30.4 pg (26-34); Mean Corpuscular Volume 96.1 fl (80-100); Nucleated Red Blood Cells Absolute Auto 0.000 K/mm3 (0.0-0.012); Nucleated Red Blood Cells Perc 0.0 % (0.0-0.2); Platelet Count Result 170 k/mm3 (150-375); Red Blood Count 4.57 M/mm3 (4.2-5.4); White Blood Count 5.2 K/mm3 (4.5-10.0)
[2025-02-15 09:30] LABS: Alanine Aminotransferase 20 U/L (6-35); Albumin Level 4.1 g/dL (3.5-5.1); Alkaline Phosphatase 74 U/L (38-126); Anion Gap 7 mmol/L (4-12); Aspartate Amino Transferase 33 U/L (14-36); Bilirubin,Total 0.9 mg/dL (0.2-1.3); Blood Urea Nitrogen 10 mg/dL (7-17); Calcium 9.5 mg/dL (8.4-10.2); Carbon Dioxide 25 mmol/L (22-30); Chloride 107 mmol/L (98-107); Estimated Glomerular Filt Rate > 60; Glucose 91 mg/dL (65-110); Potassium 4.3 mmol/L (3.4-5.0); Sodium 139 mmol/L (137-145); Total Protein 6.6 g/dL (6.3-8.2)
[2025-02-15 10:08] LABS: Thyroid Stimulating Hormone Reflex 1.810 uIU/mL (0.465-4.68)
== END 2025-02-15 08:04 | disposition home or self-care (01) ==
PROVIDERS: PCP Family Medicine
DX: E78.01 Familial hypercholesterolemia (principal)
CPT/HCPCS: 36415; 80053; 84443; 85025

== ENCOUNTER 2025-02-28 08:47 | Outpatient (CLI) | payer MEDICARE, OTHER, SELFPAY ==
--- OUTSIDE RECORDS SUMMARY | 2014-03-02 02:45 | XMS_ITS | Continuity of Care Document ---
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 Name Role Phone Diana OD OD, Jay Unavailable Unavailabl e Allergies, Adverse Reactions, Alerts Substance Reaction Status Criticality No Known Allergies Active No Inform ation Medications Medication Instructions Dosage Effective Dates (start - stop) Status Comments Zymaxid 0.5 % eye drops instill 1 drop by ophthalmic route 4 times every day into affected eye(s) while awake on days 2 through 7 of treatment 1 drop - Active Pred Forte 1 % eye drops,suspension instill 1 drop by ophthalmic route 4 times every day into affected eye(s) 1 drop - Active Acular 0.5 % eye drops instill 1 drop by ophthalmic route 4 times every day into affected eye(s) - Active Procedures Procedure Date Post-op Follow-up Visit Post-op Follow-up Visit Post-op Follow-up Visit Post-op Follow-up Visit Post-op Follow-up Visit Comanaged Refractive Fee ([facility]) 14 Comanaged Refractive Fee ([facility]) 14 Refractive Evaluation Advance Directives Directive Yes / No Effective Date File Name No Information Encounters Encounter Description Practice Location Reason(s) For Visit Diagnoses Date Provider Providers Copied on Encounter [facility], [address] [place] [address] [address], [place], [place], [address], [place] tel:[phone] SEC [facility] Ball No Information Alexeny OD Jay. [address] [facility], [place], [place], [address], [place]. tel:[phone] [facility], [address], [place], [place], [address], [place] tel:[phone] SEC [facility] No Information Alexeny OD Jay. [address] [facility], [place], [place], [address], [place]. tel:[phone] Referring Provider: Jay Ortiz OD P, [address] [facility], [place], [address] . tel:[phone] [facility], [address], [place], [place], [address], [place] tel:[phone] [facility] No Information Arianay OD Jay. [address] [place], [place], [address], [place]. tel:[phone] Referring Provider: Jay Ortiz OD P, [address] [facility], [place], [address] . tel:[phone] [facility], [address], [place], [place], [address], [place] tel:[phone] [facility] No Information Arianakirilleny OD Jay. [address] [place], [place], [address], [place]. tel:[phone] Referring Provider: Jay Ortiz OD P, [address] [place], [address] . tel:[phone] [facility], [address], [place], [place], [address], [place] tel:[phone] SEC [facility] Follow Up of 1 DAY PO PRK OU (chief complaint) Post-op follow up Diana Thompson. [address] [place], [place], [address], . tel:[phone] Referring Provider: Jay Ortiz OD P, [address] [place], [address] . tel:[phone] [facility], [address] [place] [address] [address], [place], [address], tel:[phone] SEC [facility] No Information Diana Thompson. [address] [place], [place], [address], . tel:[phone] [facility], [address] [place] [address] [address], [place], [place], [address], tel:[phone] SEC [facility] EYE & VISION EXAMINATION Diana Thompson. [address] [place], [place], [address], . tel:[phone] Referring Provider: Jay Ortiz OD P, [address] [place], [address] . tel:[phone] Family History Family Member Type Diagnosis Age At Onset No Information Payers Payer name Insurance type Covered alliance party ID Authoriza tion(s) No Information Social History Type Description Quantity Date Captured Comments Sex Female Smoking Status No Information Chief Complaint And Reason For Visit No Information Reason For Referral Reason For Referral No Information History Of Present Illness Encounter Date Complaint History Of Prese nt Illness Follow Up of 1 DAY PO PRK OU Pt presents for 1 Day PO PRK OU performed by Dr. Wyatt 12/27/2013. Pt has no light sensitivity, irritation or pain. Pt c/o blurry vision OU. BCL still in OU. Pt using Acular, Zymaxid and Pred Forte. Per Dr. 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 Functional Status Date Functional Assessmen t No Information Instructions Date Instruction Additional Infor basilio - Return in 4 days w clinton Ortiz O.D. for post op exam Related to Post-op follow up - disc with pt va ma y worsen and then begin to improve with healingbcl OU in good positionconsider removing at next post opbegin Ketorolac QID OU x5 days then d/cbegin Zymaxid QID OU x7 days then d/c unless otherwise directedbegin Pred Forte QID OU x4 weeksABMD noted by Dr. Wyatt during surgery, monitor for progression, consider [id number] to call if symptoms worsen or do not improve Related to Post-op follow up - Return in 2 weeks with Jay Ortiz O.D. for follow up exam. Related to Exam of eyes and vision Exam of eyes and vis ion Refractive Consult - disc HEBERT v LASIK or ASA SPM to disc surgical potential with surgeondisc lg cd ratio OU, pt understands need for adt'l testing as possible glc suspect-perform GDX, VF, VEP, gonio at fupDiscussed Nature of Refractive & Ocular Conditions are explained in detail. Risks and Alternatives are discussed as well. Pt. Asks Intellegent Questions Indicating Understanding. Informed Consent Given to Pt., Pt WILL NOT Proceed With Surgery Until ALL Questions Have Been Answered. Discussed Risks of Halo/Glare with Large Pupil. Questions Answered: Monovision vs. Bilateral Dist Related to Exam of eyes and vision Assessments Type Assessment Date No Information Patient Care Teams Name Effective Dates (start - stop) Status Members No Information
--- NOTE | ~2025-02-28 | MM_ITS ---
EXAMINATION: MM screening tiara BI w roberto HISTORY: Screening TECHNIQUE: Craniocaudal and mediolateral oblique 3-D tomosynthesis images were obtained and synthetic 2-D images were generated. CAD analysis was submitted and interpreted. COMPARISON: 08/04/2022 BREAST PARENCHYMAL COMPOSITION: There are scattered areas of fibroglandular density. FINDINGS: There is no evidence of suspicious mass, calcification, or architectural distortion to suggest malignancy. There has been no suspicious interval change. IMPRESSION: 1. No mammographic evidence of malignancy. Recommend routine screening mammography in one year. BI-RADS Category 2: Benign finding(s) Reviewed, dictated and finalized at location Q. IMPRESSION: 1. No mammographic evidence of malignancy. Recommend routine screening mammogra phy in one year. BI-RADS Category 2: Benign finding(s)
--- OUTSIDE RECORDS SUMMARY | 2025-02-28 09:16 | XMS_ITS | Clinical Summary ---
Author Organization [facility] Address [address] [place] [address] Care Team Providers Care Tile Molder Hand Name Role Phone Neida Espinosa MD Primary Care Provider Allergies Active Allergy Reactions Criticality Noted Date Comments Cephalexin Vomiting Low 07/10/2019 Penicillins Other (See comments) Low Yeast infection Medications psyllium (FIBER-CAPS, PSYLLIUM HUSK,) 0.52 gram capsule take 2 by oral route 2 times every day 0 0 6 Active magnesium oxide 500 mg capsule take 1 capsule by oral route every day with food 0 0 6 Active black cohosh 40 mg tablet 1 tablet daily 0 0 6 Active calcium carbonate-vitam in D3 (CALCIUM 500 + D) 1,250mg (500mg elemental) - 200 units per tablet daily. Active ergocalciferol (VITAMIN D) 50,000 unit capsule Take 50,000 Units by mouth once a week. 8 Active valACYclovir (VALTREX) 1 gram tablet as needed. 8 Active aspirin 81 mg tablet Take 81 mg by mouth daily. 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 Cardiology [address] [facility] [address] [place] [address] Mario Olivo MD Right carotid bruit (Primary Dx); Splenic artery aneurysm; Cold intolerance; PVC's (premature ventricular contractions); Dyslipidemia; Aortic calcification 02/08/2025 Orders Only [facility] CARDIOLOGY Scanning, Provider 01/31/[address] [facility] Cardiology [address] [place] [address] Advanced Medicine 8th [place] [address] [place] [address] Mario Olivo MD Splenic artery aneurysm (Primary Dx) 01/30/2025 1:53 PM CDT - 01/30/2025 11:59 PM CDT Hospital Encounter [facility]) [address] [place] [address] Mario Olivo MD Splenic artery aneurysm Discharge Disposition: Discharge to home or self care 01/30/2025 Results Follow-Up Cardiology Mario Olivo MD CT abdomen with contrast 01/16/[address] [facility] Cardiology [address] [place] [address] Medicine 8th [place] [address] [place] [address] Mario Olivo MD 01/12/[address] [facility] Cardiology [address] [place] [address] 8th [place] [address] [place] [address] Mario Olivo MD 01/10/2025 2:01 PM CDT - 01/10/2025 11:59 PM CDT Hospital Encounter [facility] Imaging [address] [place] [address] Mario Olivo MD Carotid artery disorder; PVC's (premature ventricular contractions); Dyslipidemia Discharge Disposition: Discharge to home or self care 01/10/2025 2:01 PM CDT - 01/10/2025 11:59 PM CDT Hospital Encounter [facility] Imaging [address], [place] [address] Mario Olivo MD Carotid artery disorder; PVC's (premature ventricular contractions); Dyslipidemia Discharge Disposition: Discharge to home or self care 01/02/[address] [facility] Cardiology [facility] 8th [place] [address] [place] [address] Jenaro Hassan MD 12/27/2024 10:00 AM CDT Office Visit [facility] Cardiology [address] [place] [address] [place] [address] [place] [address] Mario Olivo MD Carotid artery disorder (Primary Dx); PVC's (premature ventricular contractions); Dyslipidemia; Family history of premature CAD 12/27/[address] [facility] Cardiology [address] [place] [address] [place] [address] [place] [address] Mario Olivo MD Scheduling Testing/Treatment 12/27/2024 Results Follow-Up 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 Gender Identity Female 05/16/2020 7:34 AM RAW STOCK MACHINE LOADER Sexual Orientation Not on file Obstetrics History Last Filed Vital Signs Vital Sign Reading Time Taken Comments Blood Pressure 138/72 02/26/2025 12:47 PM CDT Pulse 62 02/26/2025 12:47 PM CDT Temperature 36.8 C (98.2 F) 02/26/2025 12:47 PM CDT Respiratory Rate - - Oxygen Saturation 97% 02/26/2025 12:47 PM CDT Inhaled Oxygen Concentration - - Weight 57.6 kg (127 lb) 02/26/2025 12:47 PM CDT Height 154.9 cm (5' 1) 02/26/2025 12:47 PM CDT Body Mass Index 24 02/26/2025 12:47 PM CDT Plan of Treatment Health Maintenance Due Date Last Done Comments Breast Cancer Screening-Mammogram 1955 Colon Cancer Screening-Colonoscopy 1955 Depression Screening 1955 Fall Risk Assessment 1955 Hepatitis C Screening 1955 Osteoporosis Screening-Bone Density Scan 1955 Hepatitis B Screening 1972 Well Visit 65+ 12/11/2019 Pneumococcal vaccine 65+ (2 of 2 - PCV) 05/16/2021 05/16/2020 Influenza Vaccine (#1) 2025 , 05/16/2020, 04/05/2018, Additional history exists DTaP/Tdap/Td Vaccine (2 - Td or Tdap) 10/05/2034 10/05/2024 Zoster Vaccine Completed 02/15/2019, 11/06, 04/06/2015 Procedures Procedure Name Priority Date/Time Associated Diagnosis [...] 10:18 AM CDT PVC's (premature ventricular contractions) from Last 3 Months Results * SCAN [...] consolidation, pleural effusion, or pneumothorax within the fkjdl-eb-ubub. The imaged heart is normal in size without pericardial effusion within the tjdyx-uf-vxzn. There is a small hepatic cyst in [...] is no ascites or pneumoperitoneum within the xtyav-ff-ufcm. The abdominal aorta is normal in caliber. [...] consolidation, pleural effusion, or pneumothorax within the gkmtq-by-xonk. The imaged heart is normal in size without pericardial effusion within the numpi-qi-wfne. There is a small hepatic cyst in [...] is no ascites or pneumoperitoneum within the klrhg-xk-nevk. The abdominal aorta is normal in caliber. [...] Naeem Sharif M.D. us Mario Olivo MD IM CT PROCEDURES Final Resul t * CTA [...] the CTA were generated on a dedicated workstation/senior sql server dba. Contrast information: 100 mL Optiray-350 IV COMPARISON: [...] narrowing or filling defects are identified. The ulufpw-ku-Jujebj is complete. The anterior and middle cerebral [...] the CTA were generated on a dedicated workstation/senior sql server dba. Contrast information: 100 mL Optiray-350 IV COMPARISON: [...] narrowing or filling defects are identified. The uvuhgt-it-Kliigb is complete. The anterior and middle cerebral [...] Scanner. Coronary calcification was analyzed using a [email or web address] 3D workstation with calcified plaque analysis software. [...] Scanner. Coronary calcification was analyzed using a [email or web address] 3D workstation with calcified plaque analysis software. [...] it. Electronically signed by: Liam Kessler M.D. Mario Olivo MD IMG CT PROCEDURES Final Resul t * POC ISTAT (01/10/2025 2:12 PM CDT) Creatinine, POC, bld 1.0 0.6 - 1.3 mg/dL POC Device Number [id number] [facility] Blood 01/10/2025 2:12 PM CDT 01/10/2025 2:12 PM CDT Mario Olivo MD LAB BLOOD ORDERABLES Final [facility] Organization Address City/State/ZIP Co de Phone Number [facility] [address] [facility]. Department [place] [address] * ECG 12 lead (12/27/2024 10:18 AM CDT) Mario Olivo MD ECG ORDERABLES Edited Result - Final from Last 3 Months Insurance MEDICARE FOR LIFE MEDICARE FOR LIFE Care Teams Tile Molder Hand Relationship Specialty Start Date End Date Neida Espinosa MD [address] [facility] [address] [place] [address] PCP - General 11/14/15
--- OUTSIDE RECORDS SUMMARY | 2025-02-28 09:16 | XMS_ITS | Patient Health Record ---
Author Organization [facility] Address [address] [place], [place] [id number] Support Name Relationship Address Phone JANES RODRÍGUEZ Guarantor Unknown [phone] Reason For Referral No Information Medications Medication SIG (Take, Route, Frequency, Duration) Notes Start Date End Date Status tramadol hydrochloride 50 MG Oral Tablet ORAL tramadol hydrochloride 50 MG Oral TabletOriginal Medicationtramadol hydrochloride 50 MG Oral Tablet *Reorder from [employer]olog[employer] for eRx and Interaction Alerts* 3 Active diclofenac sodium 25 MG Delayed Release Oral Tablet ORAL diclofenac sodium 25 MG Delayed Release Oral TabletOriginal Medicationdiclofenac sodium 25 MG Delayed Release Oral Tablet *Reorder from [employer]olog[employer] for eRx and Interaction Alerts* 2 Active ciclopirox 80 MG/ML Topical Solution [Penlac Nail Lacquer] ciclopirox 80 MG/ML Topical Solution [[place] Nail Lacquer]Original Medicationciclopirox 80 MG/ML Topical Solution [[place] Nail Lacquer] *Reorder from [employer]ologics for eRx and Interaction Alerts* 3 Active acetaminophen 300 MG / hydrocodone bitartrate 5 MG Oral Tablet ORAL acetaminophen 300 MG / hydrocodone bitartrate 5 MG Oral TabletOriginal Medicationacetaminophen 300 MG / hydrocodone bitartrate 5 MG Oral Tablet *Reorder from [employer] for eRx and Interaction Alerts* 3 Active Plan Of Treatment No Information Insurance Providers Payer Name Payer Address Payer Phone Subscriber Number Group Number Insured Name Patient Relationship to Insured Coverage Start Date Coverage End Date [facility] ([facility] ATTN CLAIMS [address] [place] [address] [id number] JANES YANG Self - patient is the insured [facility] ATTN CLAIMS [address] [place] [address] [id number] JANES YANG Self - patient is the insured
--- OUTSIDE RECORDS SUMMARY | 2025-02-28 09:16 | XMS_ITS | Encounter Summary ---
Author Organization [facility] Address [address] [place] [address] Care Team Providers Care Biology Laboratory Assistant Name Role Phone Neida Espinosa MD Primary Care Provider Encounter Details Date Type Department Care Team (Late st Contact Info) Description 01/30/2025 Results Follow-Up Cardiology Mario Olivo MD [address] [address] [address] abdomen with contrast Social History Tobacco Use Types Packs/Day Years Used Date Smoking Tobacco: Never Smokeless Tobacco: Never Alcohol Use Standard Drinks/Week Comments No 0 (1 standard drink = 0.6 oz pur e alcohol) Comments Unknown Sex and Gender Information Value Date Recorded Sex Assigned at Not on file Legal Sex Female 2:44 AM TABLE GAMES DUAL RATE SUPERVISOR Gender Identity Female 05/16/2020 7:34 AM TABLE GAMES DUAL RATE SUPERVISOR Sexual Orientation Not on file documented as [...] on filedocumented in this encounter Care Teams Biology Laboratory Assistant Relationship Specialty Start Date End Date Neida Espinosa MD [address] [facility] [address] [place] [address] PCP - General 11/14/15 documented as of this encounter
--- OUTSIDE RECORDS SUMMARY | 2025-02-28 09:17 | XMS_ITS | Clinical Summary ---
Author Organization [facility] Address [address] [place] [address] Care Team Providers Care Computer Support Analyst Name Role Phone Neida Espinosa MD Primary Care Provider + Source Comments [facility],non-owned Affiliates and Associated Physician Practices is amultiple site organization consisting of ambulatory clinics and hospital sitesin [place], [place], [place] and [place]. This disclosure is being madepursuant to the Care Everywhere program and may not contain all information available regarding this patient. Last updated 18.[facility] Allergies Active Allergy Reactions Criticality Noted Date [...] on file Legal Sex Female 4:40 PM CAMPGROUND CARETAKER Gender Identity Not on file Sexual Orientation Not on file Last Filed Vital Signs Vital Sign Reading Time Taken Comments Blood Pressure 128/86 07/10/2019 4:57 PM CAMPGROUND CARETAKER Pulse 60 07/10/2019 4:57 PM CAMPGROUND CARETAKER Temperature 37 C (98.6 F) 07/10/2019 4:57 PM CAMPGROUND CARETAKER Respiratory Rate 16 07/10/2019 4:57 PM CAMPGROUND CARETAKER Oxygen Saturation 97% 07/10/2019 4:57 PM CAMPGROUND CARETAKER Inhaled Oxygen Concentration - - Weight 60.3 kg (133 lb) 07/10/2019 4:57 PM CAMPGROUND CARETAKER Height 157.5 cm (5' 2) 07/10/2019 4:57 PM CAMPGROUND CARETAKER Body Mass Index 24.33 07/10/2019 4:57 PM CAMPGROUND CARETAKER Plan of Treatment Health Maintenance Due Date [...] 2004 ZOSTER VACCINE (1 of 2) 2004 DEPRESSION SCREENING 06/07/2024 COVID-19 VACCINE (1 - 2023-2 5 season) 2025 INFLUENZA VACCINE (#1) 2025 Respiratory Syncytial Virus [...] to complete this topic Insurance Care Teams Computer Support Analyst Relationship Specialty Start Date End Date Neida Esipnosa MD [address] [place] [address] PCP - General Family Medicine 07/10/19
--- OUTSIDE RECORDS SUMMARY | 2025-02-28 09:17 | XMS_ITS | Clinical Summary ---
Author Organization [facility] Address [address] [place] [address] Care Team Providers Care Drugless Physician Name Role Phone Beatriz Dillard APRN, NP-C Unavailable Florentino Little MD Primary Care Provider [phone] Allergies Active Allergy Reactions Criticality Noted Date Comments Cephalexin Vomiting Low 07/10/2019 Penicillins Other (see comment) Low 07/10/2019 Yeast infection Yeast infection Medications pravastatin (PRAVACHOL) 10 MG tablet Take 1 tablet (10 mg total) by mouth nightly at bedtime. at bedtime 07/18/2022 Active VITAMIN D, ERGOCALCIFEROL, 1.25 MG (62280 UT) capsule Take by mouth every 7 [...] AM CDT Legal Sex Female 8:26 AM VASCULAR TECHNOLOGIST SONOGRAPHER Gender Identity Not on file Sexual Orientation [...] Description 03/08/2025 10:30 AM CDT Office Visit [facility] Family [facility] [address] [place] [id number] Bianca Wheeler MD [address] [place] [id number] Health Maintenance Due Date Last Done Comments Colorectal Cancer Screening Colonoscopy (10 Years) 1954 Hepatitis C 1972 DTaP, Tdap and Td Vaccines (1 - Tdap) 1973 Mammogram Screening 1994 Pneumococcal Vaccine: 50+ Years (1 of 1 - PCV) 2004 Zoster Vaccines (2 of 3) 06/01/2015 04/06/2015 Annual Medicare Wellness Visit 12/11/2019 Dexa Scan (General) 12/11/2019 COVID-19 Vaccine (2024- season) 2025 03/27/2022, 09/22/2021, 04/18/2021, Additional history exists RSV [...] age to complete this topic Insurance MEDICARE [facility] [employer] Care Teams Drugless Physician Relationship Specialty Start Date End Date Florentino Little MD [address] [facility] [address] [place] [address] PCP - General FAMILY PRACTICE 3/19/25 Beatriz Dillard, SRIKANTH, INSURANCE COLLECTOR-C [address] [phone] NURSE PRACTITIONER 01/21/24
--- OUTSIDE RECORDS SUMMARY | 2025-02-28 09:17 | XMS_ITS | Encounter Summary ---
Author Organization [facility] Address [address] [place] [address] Phone Care Team Providers Care Log Chain Feeder Name Role Phone Neida Espinosa MD Primary Care Provider Encounter Details Date Type Department Care Team (Late st Contact Info) Description 12/27/2024 Results Follow-Up [facility] Medicine Cardiology [address] [facility] [address] [facility] 8th [place] [address] [place] [address] Mario Olivo MD [address] [facility] [address] [place], [place] [id number] ECG 12 lead, CTA Head Neck W [...] on file Legal Sex Female 2:44 AM LUBRICATION EQUIPMENT SERVICER Gender Identity Female 05/16/2020 7:34 AM LUBRICATION EQUIPMENT SERVICER Sexual Orientation Not on file documented as [...] on filedocumented in this encounter Care Teams Log Chain Feeder Relationship Specialty Start Date End Date Neida Espinosa MD [address] [facility] [address] [place] [id number] PCP - General 11/14/15 documented as of this encounter
== END 2025-02-28 08:48 | disposition home or self-care (01) ==
LOC: CHSIMG 08:49
PROVIDERS: PCP Family Medicine; Visit Provider Family Medicine
DX: Z12.31 Encounter for screening mammogram for malignant neoplasm of breast (principal)
CPT/HCPCS: 77063; 77067